=== PATIENT | male | born 1980 | race Caucasian/White ===

== ENCOUNTER → 2019-12-26 12:38 | Outpatient (CLI) | payer OTHER, SELFPAY ==
[2019-12-26 13:26] LABS: Absolute Lymphocyte Count 1.81 X10^3/uL (0.83-4.51); Absolute Neutrophil Count 4.2 X10^3/uL (2.0-7.7); Basophil# 0.04 X10^3/uL; Basophil% 0.6 % (0-1); Eosinophil# 0.29 X10^3/uL; Eosinophils% 4.2 % (0-5); Hematocrit 41.2 % (40-54); Hemoglobin 13.7 g/dL (13.0-16.5); Lymphocyte # 1.81 X10^3/ul (4.0); Lymphocyte % 26.2 % (19-41); Mean Corp Hgb Conc 33.3 g/dL (32-36); Mean Corpuscular Hgb 28.2 pg (27.0-32.0); Mean Corpuscular Volume 84.9 fL (80-94); Mean Platelet Vol. 9.5 fl (6.2-12.0); Monocyte# 0.55 X10^3/uL; NRBC Flagged by Analyzer 0 % (0-5); Neutrophil # 4.21 X10^3/uL (2.7-7.7); Neutrophil % 60.9 % (47-70); Platelet Count 249 K/mm3 (150-450); RBC Distribution Width CV 12.5 % (11.6-14.6); RBC Distribution Width SD 37.7 fl (35.1-43.9); Red Blood Count 4.85 M/mm3 (4.6-6.2); White Blood Count 6.9 K/mm3 (4.4-11.0)
[2019-12-26 13:27] LABS: Erythrocyte Sedimentation Rate 3 mm/hr (0-15)
[2019-12-26 13:46] LABS: CRP < 2.90 mg/L (0.0-3.0)
== END ==
PROVIDERS: PCP Family Medicine; Referring Provider Physician Assistant; Visit Provider Physician Assistant
DX: M25.562 Pain in left knee (principal)
CPT/HCPCS: 36415; 85025; 85652; 86140

== ENCOUNTER → 2020-01-14 17:06 | Outpatient (CLI) | payer OTHER, SELFPAY ==
--- NOTE | 2020-01-14 17:12 | CT_ITS ---
STUDY: CT LEFTLOWER EXTREMITY WITHOUT CONTRAST REASON FOR EXAM: 39-year-old, male old. VARUS DEFORMITY, ROBERT KNEE RADIATION DOSAGE (If Supplied By Facility): CTDIvol = ( ) mGy, DLP = ( ) mGycm TECHNIQUE: Thin section transaxial imaging of the ankle was obtained, with sagittal and coronal reconstructed images. Individualized dose optimization techniques were used for this CT. COMPARISON: None. Hip findings: Normal femoral head, neck, intertrochanteric region and visualized proximal femur. Normal acetabulum. Normal hip joint. Normal superior and inferior pubic rami. Normal pubic symphysis. Normal ischial tuberosity. Normal visualized iliac wing, sacroiliac joint, and sacral ala. Normal visualized soft tissue structures of the pelvis. Knee findings: Medial compartment prosthetic components are present. Subchondral lucency at the bone hardware interface could be related to loosening or granulomatous or cystic changes related to the hardware or secondary degeneration. A small intraosseous ganglion is present in the far anterior aspect of the medial tibial plateau/proximal metaphysis. A small intraosseous cyst is also seen in the posterior nonweightbearing aspect of the lateral femoral condyle. Mild cortical ossified formation is present at the periphery of the lateral compartment. Normal tibiofibular articulation. No demonstrated fracture. A small joint effusion is present. Mild narrowing and cortical spurring is seen in the patellofemoral compartment. Unremarkable soft tissue structures. Ankle findings: Normal visualized distal tibia and fibula. Normal tibiotalar articulation and talar dome. Normal talus, calcaneus, navicular and cuboid tarsal bones. Normal subtalar, talonavicular and calcaneocuboid articulations. Normal navicular-cuneiform, cuneiform tarsal bones and intercuneiform articulations. Normal tarsometatarsal articulations and visualized metatarsi. The soft tissue structures are grossly normal. CT/Extremity Lower without Contra IMPRESSION: 1. Medial compartment prosthetic components are present. Subchondral lucency at the bone hardware interface could be related to loosening or granulomatous or cystic changes related to the hardware or secondary degeneration. 2. Unremarkable left hip 3. Unremarkable left ankle Electronically Signed: Tye Lock MD at 23:41 EDT , Service support ,
== END ==
PROVIDERS: PCP Family Medicine; Referring Provider Specialist; Visit Provider Specialist
DX: M21.162 Varus deformity, not elsewhere classified, left knee (principal)
CPT/HCPCS: 73700

== ENCOUNTER 2020-01-30 08:24 | Day surgery (SDC) | payer SELFPAY ==
--- NOTE | 2020-01-15 13:15 | HP.PCM_ITS ---
History and Physical History and Physical Patient Name: Dary Johnson : 1980 From: IRAJ RECINOS NP DATE OF SURGERY: 01/30/2020 SCHEDULED PROCEDURE: Robotic-assisted revision left unicompartmental knee replacement to total knee arthroplasty HISTORY OF PRESENT ILLNESS: Preoperative history and physical exam was performed on January 14, 2020. This is a 39 male who has been having ongoing knee pain for approximately 1 month. The patient has a history of bilateral unicompartmental knee replacements in [place] [address] Carmine Montemayor. The patient describes his pain as sore. The pain is 0 on a scale of 10 at best and 5 on a scale of 10 with average. The pain is made worse with stairs and deep flexion of the left knee. The pain is ass ociated with decreased range of motion in the left knee over the last 2 months. The patient had a CBC with differential, ESR and CRP on December 26, 2019 revealing no acute infection. Previous treatments include rest, elevation, weight loss with minimal to no relief. He has participated in formal physical therapy and home exercises with no relief. Additional treatment options include nonsteroidal anti-inflammatories. The patient denies any pertinent medical history. He denies chest pain, fevers, chills, shortness of breath, difficulty breathing or recent infections. We will be obtaining surgical clearance from a provider at [facility] After failing conservative measures and discussing treatment options with Dr. Minesh Augustine the patient does wish to proceed with a robotic-assisted revision left unicompartmental knee replacement to total knee arthroplasty. REVIEW OF SYSTEMS: ROS: Const: Denies anorexia, change in appetite, fever, hard of hearing, vision problems and weight change. CV: Denies chest pain, heart murmur, irregular heartbeat and peripheral vascular disease. Resp: Denies asthma, cough, pneumonia, sleep apnea, SOB, tuberculosis and wheezing. GI: Denies constipation, diarrhea, difficulty swallowing, heartburn, nausea, bloody stools and vomiting. : Urinary: denies incontinence. Musculo: Denies leg swelling, limp, trouble walking and weakness. Skin: Denies Raynaud's, history of shingles and tattoo. Neuro: Denies ambulatory dysfunction, dizziness, numbness/tingling and tremor. Psych: Denies anxiety, depression, insomnia, mental illness and stress. Raul/Lymph: Denies anemia, bleeding/bruising tendency and past transfusion. Reviewed, no changes. PAST MEDICAL HISTORY: Advance Care Plan: No Advance Directives Effective Date: 01/12/2017 PMH: Medical Problems: None Accidents: Fracture - LT HAND, CURRENT, 08-28-10 RT WRIST LT LEG Surgical Hx: Stem Cell Injection Prodcure - (03/2016) Bilat Unicompartmental Knee Replacement - (11/25/2016) [email or web address] Anesthesia Complications: None Assistive Devices: None Reviewed, no changes. 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 Personal Habits: Cigarette Use: Light tobacco smoker (10 or fewer cigarettes/day).Smokeless Tobacco: Current Smokeless Tobacco User.E-Cigarette Use: Never used.Alcohol: Denies use.Drug Use: Denies Use.Enjoy Exercising: Daily. Reviewed and updated. VITALS: Ht: 72 Wt: 235lb Wt k.596 BMI: 31.9 BP: 104/72 Pulse: 92 Resp: 20 T: 97.4 T: 36.3C ALLERGIES: No Known Drug Allergy MEDICATIONS: Oxycodone HCL 5 mg 1-2 tab by mouth every 4 hours, Meloxicam 7.5 mg 1 by mouth twice a day, Promethazine HCL 12.5 mg 1-2 tablets by mouth every 6 hours, Famotidine 20 mg 1 by mouth every day, Scopolamine 1 MG/3Days 1 patch behind ear every 3 days; to begin the night before surgery PRE-OP EXAM: General appearance:NORMAL Other: Eyes: Conjunctivae and lids: NORMAL Pupils: ERR Ears, Nose, Mouth, and Throat: NORMAL Other: Inspection of lips, teeth and gums: NORMAL Other: Respiratory: Assessment of respiratory effort: NORMAL Other: Auscultation of lungs: clear to auscultation no wheezes, rhonchi or rales. Cardiovascular: Auscultation of heart: regular rate and rhythm, no murmurs, gallops or rubs. Gastrointestinal: Exam of abdomen: soft, nontender, nondistended bowel sounds present. Neurological: see below Psychiatric: Orientation to time, place and person: NORMAL Other: Mood and affect: NORMAL Other: PHYSICAL EXAMINATION: Left knee is cool to touch with no erythema or signs of infection. Mild effusion. Range of motion with flexion to 90. Firm endpoint with anterior and posterior drawer testing. 5 of varus alignment. Fully correctable varus alignment. IMAGING STUDIES: X-rays of left knee obtained on December 25, 2019 were reviewed and reveal lucencies under the tibial baseplate and by the femoral implant. IMPRESSION: 1. Pain due to internal orthopedic prosthetic device or implant 2. Presence of left artificial knee joint 3. Left knee effusion 4. Varus deformity, left knee PLAN: Dr. Minesh Augustine did discuss and review with the patient all treatment options including surgical versus nonsurgical. The patient does wish to proceed with the above-stated procedure. Potential risk, benefits and complications of the procedure were discussed in detail including but not limited to , infection, nerve and blood vessel damage, persistent pain, numbness, tingling, paresthesia, blood clot, pulmonary embolism and requirement for possible further surgery. The patient expressed full understanding and has no further questions for the doctor. The patient does agree to proceed with the above-stated p rocedure and has signed the surgery consent form. The patient was given prescriptions for the following medications at his preoperative visit: famotidine, meloxicam, oxycodone, promethazine and scopolamine patch. He will bring a walker with him to the hospital the day of his surgery. Discussed with the patient the risks associated with the COVID-19 virus including the risk of exposure while at the hospital. The patient was reassured local hospitals have low infection rates and taken all necessary precautions to limit patient exposure to COVID-19. Limiting the patient's time in the hospital may decrease their exposure to COVID-19. The patient was notified that we will need to comply with any screening or testing the hospital wishes to perform and that surgery may be delayed for any positive test results. This dictation was created using voice recognition software. Phonetic and/or grammatical errors may exist. ___ I have re-examined the patient. There are no clinical changes since date of exam. ___ See progress notes for changes. ___ Dictated on admission Date: Time: Signature:
[2020-01-16 11:19] LABS: Absolute Lymphocyte Count 1.38 X10^3/uL (0.83-4.51); Absolute Neutrophil Count 3.4 X10^3/uL (2.0-7.7); Basophil# 0.05 X10^3/uL; Basophil% 0.9 % (0-1); Eosinophil# 0.22 X10^3/uL; Eosinophils% 3.9 % (0-5); Hematocrit 39.3 % (40-54); Hemoglobin 13.3 g/dL (13.0-16.5); Lymphocyte # 1.38 X10^3/ul (4.0); Lymphocyte % 24.7 % (19-41); Mean Corp Hgb Conc 33.8 g/dL (32-36); Mean Corpuscular Hgb 28.4 pg (27.0-32.0); Mean Platelet Vol. 9.2 fl (6.2-12.0); Monocyte# 0.54 X10^3/uL; Monocyte% 9.7 % (0-10); NRBC Flagged by Analyzer 0 % (0-5); Neutrophil # 3.39 X10^3/uL (2.7-7.7); Neutrophil % 60.6 % (47-70); Platelet Count 264 K/mm3 (150-450); RBC Distribution Width CV 12.7 % (11.6-14.6); RBC Distribution Width SD 38.3 fl (35.1-43.9); Red Blood Count 4.68 M/mm3 (4.6-6.2); White Blood Count 5.6 K/mm3 (4.4-11.0)
[2020-01-16 11:38] LABS: Anion Gap 4 (5-15); BUN 23 mg/dL (7-18); BUN/Creat Ratio 17.4 RATIO (10-20); Calcium,Total 8.6 mg/dL (8.5-10.1); Chloride 110 mmol/L (98-107); Creatinine, Serum 1.32 mg/dL (0.70-1.30); EST Glomerular Filtration Rate 64 mL/min (>60); Est Glom Filt Rate - Afr Amer 77 mL/min (>60); Glucose 86 mg/dL (74-106); Magnesium 2.2 mg/dL (1.6-2.6); Potassium 3.8 mmol/L (3.5-5.1); Sodium Level 141 mmol/L (136-145)
[2020-01-24 10:21] LABS: Albumin, Serum 3.8 g/dL (3.2-5.0)
[2020-01-30] VITALS (11 sets, daily range): BP systolic 90–115; BP diastolic 43–80; PULSE 60–68; RESP 14–18; TEMP 36.6–36.8; O2SAT 94–100; BMI 31.3
[2020-01-30 09:10] LABS: Bedside Glucose 74 mg/dL (70-110)
[2020-01-30] MEDS: Gabapentin 600 MG Tablet PO (09:26)
[2020-01-30] MEDS: Acetaminophen 500 MG Tablet 1000 MG PO (09:26)
[2020-01-30] MEDS: Celecoxib 200 MG Capsule 400 MG PO (09:27)
[2020-01-30] MEDS: Lactated Ringers 1,000 ML 999 ML IV ×3 (09:31→14:31)
[2020-01-30] MEDS: Lactated Ringers 1,000 ML 125 ML IV (10:00)
[2020-01-30] MEDS: Cefazolin 2 GM in 0.9% Normal Saline 100 ML IV (10:15)
--- NOTE | 2020-01-30 12:28 | PCM.OPRPT ---
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 Based on patient's age and patella heart cartilage health we elected to maintain the patella child neurologist: Luke Borges Type of Anesthesia:: Spinal Anesthesiologist: Boom Martínez Special Medications: 2 g Ancef, 1 g TXA at incision, 1 g TXA closure, 10 mg Decadron, joint cocktail (5 mg Duramorph, 30 mL of 0.5% Ropivicaine, 1000 units of epinephrine, 30 mg of Toradol) Specimen's removed: Bony cuts Estimated Blood Loss (mL): 70 mL Fluids Replaced: 1700 mL crystalloid Description of Procedure: Implants used: 1. [place] size 6 triathlon posterior stabilized distal femoral component, with 5 mm posterior medial augment 2. Bridgett size 7 universal tibial baseplate with 15 x 50 mm stem 3. [place] X3 11 millimeters PS polyethylene Brief history operative indications: 39-year-old M with history of left knee osteoarthritis with previous medial compartment partial knee replacement. Patient had radiographic evidence of aseptic loosening with associated pain. Failed conservative measures as mentioned in the H&P. Discussion of total knee arthroplasty as well as risk and benefits were discussed the patient including but not limited to blood loss, DVTs, PEs, neurovascular damage, general risk of anesthesia including loss of life, and stiffness or instability were discussed with patient. Patient demonstrated understanding and was able to sign informed consent. Procedure: On the date of procedure patient's left lower extremity was marked in the preoperative area. The patient was then taken back to the operating room where the patient was placed on the table in the supine position. All bony prominences were identified a well-padded. Anesthesia assumed control of the C-spine and airway and remained controlled throughout the remainder of the procedure. A tourniquet was placed on the left upper thigh and the leg was prepped in a sterile fashion. The surgeon then scrubbed at this time .Upon reentering the room left lower extremity was draped in a standard orthopedic fashion. A timeout was then called and everyone agreed upon the side, the site, the procedure to be performed, patient's identity and antibiotics given. Esmarch bandage was used to exsanguinate the extremity and the tourniquet was placed up to 250 mmHg with the knee in flexion. A midline skin incision was made and sharp dissection was taken down through skin subcutaneous tissue and fat. The standard medial parapatellar incision was made and the patella was subluxed laterally. An Appropriate deep MCL release was done and the fat pad was resected. Standard synovectomy was performed. Part of the synovium was sent for culture. Our attention was then directed to the patella. The patella was everted and was affected. There appeared to be good cartilage. Based on patient's age, cartilage health and an attempt to preserve bone stock we elected not to resurface the patella. The knee was then flexed up in 2 femoral pins were placed inside the incision and 2 tibial pins were placed outside the incision in the medial tibia bicortically. Once this was completed the 2 checkpoints in the femur and tibia were placed. Knee was then flexed up and the bony landmarks were registered. Once we registered our attention was directed towards the previous implants. Osteotomes were used to remove the femoral implant. Osteotomes were then used to remove the tibial implant both were done with minimal bone loss. Tibia was grossly loose. Once this was completed knee was taken through range of motion and manually stressed allowing us to a plan for an appropriate tibial cut. The robotic arm was brought into the field sterilely and checkpoint and saw were registered. Based on the patient's deformity the tibial cut was made in 2 degrees varus. At this time the tensioner was then placed in the joint and ligament tension was checked at 90 degrees and full extension. Based on the patient's ligamentous tension appropriate adjustments were made to the operative plan and ligament releases were done. Once we were happy with our operative plan with balanced flexion and extension gaps our attention was directed to the femur. The robot was brought into the field sterilely and registered. Posterior condylar cuts, anterior chamfer cuts and anterior cuts were appropriately made for a size 6 femur with a 5 mm posterior medial augment based on bone loss. When these were completed the saws were switched out in the distal femoral and posterior chamfer cuts were made. Protecting the soft tissue throughout this time. A size 7 tibial base plate was selected. the knee was flexed to 90 degrees and the soft tissues and posterior osteophytes were removed from the joint. 40 cc of the periarticular injection was injected into the posterior medial corner of the joint. The appropriate trials were then placed on the femur and tibia. A trial polyethylene was trialed to ensure proper balancing and stability of the knee. The appropriate tibial internal rotation was then marked with a bovie. Our attention was then directed to the patella. The lug holes were drilled and the patella trial was placed. Patellar tracking was checked and deemed appropriate. Once we were happy box cut was made in the femur for the femur and trial components were removed. the tibia was subluxed and pinned into place and the keel was punched and drilled appropriately for the tibial stem. Final components were verified and opened, and cement was mixed in a vacuum. [employer] Simplex cement was used. The wound was copiously irrigated with normal saline. When the cement was ready the components were cemented into place starting with the tibia, femur. The trial poly component was placed and the knee was placed in full extension. All excess cement was removed in the process. Once the cement had cured the tracking, alignment and balance were verified and a size 11 mm PS polyethylene component was placed. Once the final components were placed an Irrisept lavage was performed and the wound was copiously irrigated with normal saline solution and the periarticular injection was given. The wound was closed in a layer webb fashion using #1 vicryl interrupted sutures for the arthrotomy, 2-0 interrupted Vicryl suture for the subcuticular layer and taya for final skin closure. A sterile compressive dressing was then placed. The patient was then awakened from anesthesia, transferred to the [facility] and transferred to the PACU for recovery. Post op plan DVT ppx: ASA 81mg BID, thigh high compression stockings Follow up: in office in 2 weeks for wound check PT: to start POD #0 at hospital, outpatient PT should be arranged. Patient will be on doxycycline 100 mg p.o. twice daily for 1 week as we follow cultures. My physician temporary office assistant was a vital part of this case. He was important in appropriate retraction during the case, and protection of soft tissues during bony cuts. His intimate knowledge of the case and my steps aided in safe and expedient completion of the procedure as well as appropriate position of the leg during the case. He was also vital in assisting with closure under my direct supervision. Due to the complexity of this case robotic arm was used to assist in the surgery to improve accuracy and clinical outcomes. - Complications No intraoperative complications - Admit VTE Documentation VTE Present on Admission: No VTE Mechan Device Prophylaxis: SCD's, Thigh High CLARA Hose VTE Pharm Prophylaxis ordered?: Yes
--- NOTE | 2020-01-30 13:33 | RAD_ITS ---
STUDY: X-RAY - LEFT KNEE REASON FOR EXAM: Male, 39 years old. Post op TECHNIQUE: AP and lateral view(s) of the knee. COMPARISON: None. FINDINGS: Normal visualized distal femur. Normal visualized proximal tibia and fibula. Normal proximal tibiofibular articulation. The patient is status post total knee replacement. There is good alignment. Postoperative soft tissue changes. RAD/Knee 1 or 2 Views IMPRESSION: Status post total knee replacement. There is good alignment. Postoperative soft tissue changes. Electronically Signed: Topher Weber, at 14:10 EDT , Service support ,
[2020-01-30] MEDS: Cefazolin 1 GM/50 ML BAG IV (16:00)
== END 2020-01-30 17:34 | disposition home or self-care (01) ==
LOC: SDC 08:26 → AC 08:26
PROVIDERS: Anesthesiology; PCP Family Medicine; Referring Provider Specialist; Visit Provider Specialist
PROC: 0SRD0JZ Replacement of Left Knee Joint with Synthetic Substitute, Open Approach (ICD-10-PCS; CPT 27447; principal; 2020-01-30 10:00)
DX: T84.84XA Pain due to internal orthopedic prosthetic devices, implants and grafts, initial encounter (principal); T84.033A Mechanical loosening of internal left knee prosthetic joint, initial encounter; Y83.1 Surgical operation with implant of artificial internal device as the cause of abnormal reaction of the patient, or of later complication, without mention of misadventure at the time of the procedure; Y92.9 Unspecified place or not applicable; Z11.59 Encounter for screening for other viral diseases; M25.462 Effusion, left knee; M21.162 Varus deformity, not elsewhere classified, left knee; F17.210 Nicotine dependence, cigarettes, uncomplicated; Z79.1 Long term (current) use of non-steroidal anti-inflammatories (NSAID); Z79.899 Other long term (current) drug therapy; Z96.653 Presence of artificial knee joint, bilateral
CPT/HCPCS: 27487; 64447; 76942; 36415; 73560; 80048; 82040; 82962; 83735; 85025; 87015; 87070; 87075; 87077; 87081; 87102; 87116; 87205; 87206; 87635; 93005; 94799; 97161; C1776; J7120; U0003

== ENCOUNTER → 2021-03-02 09:44 | Outpatient (CLI) | payer OTHER, SELFPAY ==
[2021-03-02 10:14] LABS: Erythrocyte Sedimentation Rate 3 mm/hr (0-20)
[2021-03-02 10:15] LABS: Absolute Lymphocyte Count 1.44 X10^3/uL (0.83-4.51); Absolute Neutrophil Count 3.9 X10^3/uL (2.0-7.7); Basophil# 0.05 X10^3/uL; Basophil% 0.8 % (0-1); Eosinophil# 0.28 X10^3/uL; Eosinophils% 4.6 % (0-5); Hematocrit 41.1 % (40-54); Hemoglobin 13.8 g/dL (13.0-16.5); Lymphocyte # 1.44 X10^3/ul (0.83-4.51); Lymphocyte % 23.6 % (19-41); Mean Corp Hgb Conc 33.6 g/dL (32-36); Mean Corpuscular Hgb 28.1 pg (27.0-32.0); Mean Corpuscular Volume 83.7 fL (80-94); Mean Platelet Vol. 9.2 fl (6.2-12.0); Monocyte# 0.45 X10^3/uL; Monocyte% 7.4 % (0-10); NRBC Flagged by Analyzer 0 % (0-5); Neutrophil # 3.87 X10^3/uL (2.7-7.7); Neutrophil % 63.4 % (47-70); Platelet Count 241 K/mm3 (150-450); RBC Distribution Width CV 12.9 % (11.6-14.6); RBC Distribution Width SD 39.1 fl (35.1-43.9); Red Blood Count 4.91 M/mm3 (4.6-6.2); White Blood Count 6.1 K/mm3 (4.4-11.0)
[2021-03-02 10:50] LABS: CRP < 2.90 mg/L (0.0-3.0)
== END ==
PROVIDERS: PCP Family Medicine; Visit Provider Specialist
DX: T84.84XD Pain due to internal orthopedic prosthetic devices, implants and grafts, subsequent encounter (principal); Z96.652 Presence of left artificial knee joint
CPT/HCPCS: 36415; 85025; 85652; 86140

== ENCOUNTER 2021-06-03 20:54 | Emergency (ER) | payer OTHER, SELFPAY ==
[2021-06-03 20:55] VITALS: PULSE 114; RESP 20; TEMP 37.4; O2SAT 98; BMI 32.7
[2021-06-03 21:03] VITALS: BP 129/72; PULSE 114; RESP 20; TEMP 37.4; O2SAT 98
--- NOTE | 2021-06-03 21:21 | EDS_ITS ---
HPI HPI - URI History of Present Illness Chief Complaint: Cough Informant: patient Onset/Context/Timing Onset: Days (8) Context: Sudden Onset Timing: Continuous Quality: Blood streaks Location: Sputum Worsened by: - (Nothing) Relieved by: - (Nothing) Associated Symptoms Associated Symptoms: Positive for Headache, Myalgias, Shortness of Breath, Chest Pain and Hemoptysis; Negative for Nasal Congestion, Sinus Pressure, Nausea, Vomiting, Diarrhea and Nonproductive cough Narrative Narrative: Patient presents with cough and subjective fever for the past 8 days. Patient states it began rather suddenly. Patient states he has been coughing for the past 8 days. Patient states that over the last couple days he noted some streaks of blood in his sputum. Patient states he has some pain in his chest but it is only with coughing. Patient admits to some shortness of breath. Patient also admits to some headaches and body aches. Patient was to a sore throat. Patient denies any rhinorrhea. ROS ROS ED Constitutional Constitutional ED: Reports fever(s) and subjective; Denies chills Eyes Eyes: Denies blurry vision or change in vision ENT ENT ED: Reports sore throat; Denies rhinorrhea Cardiovascular Cardiovascular: Reports chest pain; Denies palpitations Respiratory/Chest Respiratory/Chest: Reports cough; Denies dyspnea Gastrointestinal Gastrointestinal: Denies nausea or vomiting Genitourinary Genitourinary ED: Denies dysuria or hematuria Musculoskeletal Musculoskeletal: Reports myalgias; Denies back pain or neck pain Integumentary Denies abscess or rash Neurologic Neurologic: Reports headache(s); Denies weakness Allergic/Immunologic Allergic/Immunologic ED: Denies mouth swelling or urticaria PFSH PFSH Medical History no medical history no medical history Home Medications NK 06/03/21 [History Last Taken Unknown] Allergy/AdvReac Type Severity Reaction Status Date / Time No Known Allergies Allergy Verified 01/30/20 09:17 Surgical History History of bilateral knee replacement Social History Smoking Status: Current some day smoker tobacco type: cigarettes EXAM Physical Exam Const Vital Signs: 06/03/21 20:55 06/03/21 21:03 06/03/21 21:04 Temperature 99.4 F H 99.4 F H Temperature Source Temporal Temporal Pulse Rate 114 H 114 H Respiratory Rate 20 H 20 H Respiratory Effort Normal Respiratory Pattern Tachypnea Blood Pressure 129/72 H Blood Pressure Mean 91 Pulse Ox 98 98 Oxygen Delivery Method Room Air Room Air Room Air Positive well nourished and well developed General Appearance ED: well developed HEENT Reports moist mucous membranes Neck supple and no JVD Resp normal respiratory effort and clear to auscultation bilaterally Cardio regular rate, regular rhythm and no murmurs GI normal to inspection, nondistended, normoactive bowel sounds and non-tender Palpation: soft Extremity normal to inspection General Extremety ED: Negative for edema or tenderness General Extremity: Negative for edema Neuro oriented x3, CN's II-XII intact bilaterally and no sensory deficits noted Sensorium / Orientation: alert Motor Exam: strength 5/5 throughout Psych mental status grossly normal Skin no rashes or lesions noted MDM MDM MDM Narrative Medical decision making narrative: Patient was given a dose of Tylenol here. Patient was given albuterol inhaler. Patient was given some IV fluids. CBC with essentially within normal limits. There is a mild anemia with a hemoglobin of 11 and hematocrit 32.1. D-dimer was elevated at 1.7. Comprehensive metabolic profile was essentially within normal limits. Lactate was normal. Portable 1 view chest x-ray was obtained. On my interpretation, lung lucas are clear. There is normal cardiac silhouette. Bony thorax is normal. There is no acute process noted. Radiologist also interpreted the x-ray and agrees. Because of the elevated D-dimer, CTA of the chest was obtained. There is no evidence of pulmonary embolism or pneumonia. There is some hilar adenopathy noted. This was interpreted by the radiologist and reviewed by myself. Patient was advised of his findings. Patient was instructed to follow-up with his primary care physician for further evaluation of the hilar lymphadenopathy. Patient understands and is agreeable with the plan. All questions were answered. Lab Data Attestation: I reviewed the patient's lab results. Labs: Laboratory Results - last 24 hr 06/03/21 06/03/21 06/03/21 21:35 21:35 21:35 WBC 9.1 RBC 4.00 L Hgb 11.0 L Hct 32.1 L MCV 80.3 MCH 27.5 MCHC 34.3 RDW Std Deviation 34.5 L RDW Coeff of Bacilio 11.8 Plt Count 253 MPV 8.8 Immature Gran % (Auto) 0.400 Neut % (Auto) 84.3 H Lymph % (Auto) 6.3 L [place] % (Auto) 8.2 Eos % (Auto) 0.4 Baso % (Auto) 0.4 Absolute Neuts (auto) 7.6 Absolute Lymphs (auto) 0.57 L Nucleated RBC % 0 Differential Comment SCANNED D-Dimer Quant (PE/DVT) 1.70 H* Sodium 132 L Potassium 3.4 L Chloride 102 Carbon Dioxide 25.0 Anion Gap 5 BUN 12 Creatinine 1.10 Estim Creat Clear Calc 96.02 Est GFR (MDRD) Af Amer 94 Est GFR (MDRD) Non-Af 78 BUN/Creatinine Ratio 10.9 Glucose 117 H Lactic Acid Calcium 8.8 Total Bilirubin 0.80 AST 16 ALT 37 Alkaline Phosphatase 82 Total Protein 6.7 Albumin 2.6 L Globulin 4.1 Albumin/Globulin Ratio 0.6 L 06/03/21 21:35 WBC RBC Hgb Hct MCV MCH MCHC RDW Std Deviation RDW Coeff of Bacilio Plt Count MPV Immature Gran % (Auto) Neut % (Auto) Lymph % (Auto) [place] % (Auto) Eos % (Auto) Baso % (Auto) Absolute Neuts (auto) Absolute Lymphs (auto) Nucleated RBC % Differential Comment D-Dimer Quant (PE/DVT) Sodium Potassium Chloride Carbon Dioxide Anion Gap BUN Creatinine Estim Creat Clear Calc Est GFR (MDRD) Af Amer Est GFR (MDRD) Non-Af BUN/Creatinine Ratio Glucose Lactic Acid 1.0 Calcium Total Bilirubin AST ALT Alkaline Phosphatase Total Protein Albumin Globulin Albumin/Globulin Ratio Radiography Chest X-Ray - ED: 1 View, Read by ED Physician, Read by Radiologist and Normal Diagnostic Testing: Clinical Impression(s) from Imaging Studies Chest X-Ray 06/03/21 21:36 IMPRESSION: No radiographic evidence of acute cardiopulmonary disease. Electronically Signed: Popyee Villasenor MD at 21:58 EST Tel , Service support , Chest CTA 06/03/21 22:10 IMPRESSION: 1. No PE, pneumonia or other acute disease. 2. Mediastinum and hilar adenopathy. Differential diagnosis includes but is not limited to lymphoma, sarcoidosis, and metastatic disease Electronically Signed: Popeye Villasenor MD at 22:51 EST Tel , Service support , Discharge Plan Triage Chief Complaint: Cough ED Provider: Malachi Vines Dx/Rx/DC Orders Clinical Impression: Upper respiratory infection, viral Instructions: ED URI, Viral, No Abx (Adult) Prescriptions: No Action NK RF: 0 Primary Care Provider: Nellie Blount Referrals: Nellie Blount MD [Primary Care Provider] - 5-7 Days Disposition Disposition: Home, Self Care
--- NOTE | 2021-06-03 21:36 | RAD_ITS ---
EXAM: XR CHEST, 1 VIEW CLINICAL INDICATION: cough TECHNIQUE: Frontal view of the chest. This report was created using [employer] report generation technology. COMPARISON: None. FINDINGS: LUNGS AND PLEURAL SPACES: Unremarkable. No consolidation or edema. No pneumothorax. No effusion. HEART: Unremarkable. Cardiac silhouette not enlarged. MEDIASTINUM: Central airways and mediastinal contour are unremarkable. BONES/JOINTS: Unremarkable. SOFT TISSUES: Unremarkable. RAD/Chest 1 View (Portable) IMPRESSION: No radiographic evidence of acute cardiopulmonary disease. Electronically Signed: Popeye Villasenor MD at 21:58 EST Tel , Service support ,
[2021-06-03] MEDS: Acetaminophen 500 MG Tablet 1000 MG PO (21:40)
[2021-06-03 21:48] LABS: Absolute Lymphocyte Count 0.57 X10^3/uL (0.83-4.51); Absolute Neutrophil Count 7.6 X10^3/uL (2.0-7.7); Basophil# 0.04 X10^3/uL; Basophil% 0.4 % (0-1); Eosinophil# 0.04 X10^3/uL; Eosinophils% 0.4 % (0-5); Hematocrit 32.1 % (40-54); Lymphocyte # 0.57 X10^3/ul (0.83-4.51); Lymphocyte % 6.3 % (19-41); Mean Corp Hgb Conc 34.3 g/dL (32-36); Mean Corpuscular Hgb 27.5 pg (27.0-32.0); Mean Corpuscular Volume 80.3 fL (80-94); Mean Platelet Vol. 8.8 fl (6.2-12.0); Monocyte# 0.74 X10^3/uL; Monocyte% 8.2 % (0-10); NRBC Flagged by Analyzer 0 % (0-5); Neutrophil # 7.63 X10^3/uL (2.7-7.7); Neutrophil % 84.3 % (47-70); POSITIVE DIFFERENTIAL YES; Platelet Count 253 K/mm3 (150-450); RBC Distribution Width CV 11.8 % (11.6-14.6); RBC Distribution Width SD 34.5 fl (35.1-43.9); White Blood Count 9.1 K/mm3 (4.4-11.0)
[2021-06-03 21:51] LABS: Differential Indicated SCAN CRITERIA MET
--- NOTE | 2021-06-03 22:10 | CT_ITS ---
EXAM: CT ANGIOGRAPHY CHEST WITHOUT AND WITH INTRAVENOUS CONTRAST CLINICAL INDICATION: Elevated D-dimer TECHNIQUE: Helically acquired angiography images were obtained of the chest without and with intravenous contrast. CTDI vol (mGy): 61 DLP vol (mGy-cm): [address] exam was performed using one or more of the following dose reduction techniques: automated exposure control, adjustment of the mA and/or kV according to patient size, and/or use of iterative reconstruction technique. This report was created using [employer] report generation technology. MIP reconstructed images were created and reviewed. CONTRAST: IV 100mL Isovue-370 COMPARISON: None. FINDINGS: PULMONARY ARTERIES: Unremarkable. Normal in caliber. No evidence of pulmonary embolism. AORTA: Unremarkable. Normal in caliber. No evidence of dissection. GREAT VESSELS OF AORTIC ARCH: Unremarkable. Normal in caliber. No evidence of dissection. LUNGS AND PLEURAL SPACES: No consolidation. No pleural effusion or pneumothorax. HEART: Cardiomegaly without pericardial effusion. No signs of right heart strain, ratio of right ventricle to left ventricle measures less than 1. MEDIASTINUM: Right and left hilar as well as subcarinal/mediastinal adenopathy. Etiology and significance our not entirely clear. Esophagus is unremarkable. No hiatal hernia. THYROID: Unremarkable. No thyroid lesions. BONES/JOINTS: No suspicious lytic or sclerotic lesions of bone. SPLEEN: Splenomegaly. CT/CTA Chest W/WO Contrast IMPRESSION: 1. No PE, pneumonia or other acute disease. 2. Mediastinum and hilar adenopathy. Differential diagnosis includes but is not limited to lymphoma, sarcoidosis, and metastatic disease Electronically Signed: Popeye Villasenor MD at 22:51 EST Tel , Service support ,
[2021-06-03 22:16] LABS: Differential Comment SCANNED
[2021-06-03 22:20] LABS: ALB/GLOB Ratio 0.6 RATIO (0.9-2.4); AST(SGOT) 16 U/L (15-37); Alanine Aminotransfer ALT/SGPT 37 U/L (16-61); Albumin, Serum 2.6 g/dL (3.2-5.0); Alkaline Phosphatase 82 U/L (45-117); Anion Gap 5 (5-15); BUN 12 mg/dL (7-18); BUN/Creat Ratio 10.9 RATIO (10-20); Calcium,Total 8.8 mg/dL (8.5-10.1); Chloride 102 mmol/L (98-107); EST Glomerular Filtration Rate 78 mL/min (>60); Est Glom Filt Rate - Afr Amer 94 mL/min (>60); Estimated Creatinine Clearance 96.02 ml/min; Globulin 4.1 g/dL (2.2-4.2); Glucose 117 mg/dL (74-106); Potassium 3.4 mmol/L (3.5-5.1); Protein, Total 6.7 g/dL (6.4-8.2); Sodium Level 132 mmol/L (136-145)
[2021-06-03 23:21] VITALS: BP 100/75; PULSE 102; RESP 18; O2SAT 95
== END 2021-06-03 23:22 | disposition home or self-care (01) ==
PROVIDERS: Emergency Provider Emergency Medicine; PCP Family Medicine
DX: J06.9 Acute upper respiratory infection, unspecified (principal); R59.0 Localized enlarged lymph nodes; F17.210 Nicotine dependence, cigarettes, uncomplicated
CPT/HCPCS: 71045; 71275; 80053; 83605; 85025; 85379; 87040; 87426; 96360; 99285; J7040; Q9967

== ENCOUNTER 2021-06-09 03:11 | Inpatient (IN) | payer OTHER, SELFPAY ==
[2021-06-09] VITALS (13 sets, daily range): BP systolic 100–140; BP diastolic 61–98; PULSE 80–108; RESP 16–24; TEMP 37.3–39.4; O2SAT 91–98; BMI 32.3; BMI 31.1
--- NOTE | 2021-06-09 03:24 | EX.ED.DYSGE1 ---
HPI History of Present Illness Chief Complaint: Lower Extremity Injury Informant: patient and spouse/S.O. Narrative Narrative: Patient presents with right knee pain. This patient woke up Tuesday morning and his right knee had locked up on him. This happens on occasion. He was able to get more motion. It started to get sore on Tuesday. Then in the evening and seemed to calm down. It was worse with activity. He saw his physician Tuesday. He was placed on prednisone. He has taken what sounds like 40 mg of that so far. He woke up this morning and his knee was more painful again. He does have a long history of knee problems. This knee will oftentimes lock swell and be painful. However this is a bit more than the normal. In 2016 he had partial knee replacements on both knees. 2019 he had a left total knee. He was last seen by his orthopedic surgeon in February and was told he does need a right total knee replacement. But he does not need it acutely. He has had no acute trauma or injury to the knee. Putting weight on the knee hurts more. Resting it makes it better. Patient was also seen here about 6 days ago for a respiratory complaint. He was coughing including coughing some blood. He had an extensive evaluation including blood work and CAT scan. Covid was negative. He states those symptoms are getting much better. He has a slight cough. But he is not having the fevers and chills anymore. When he had the fevers and chills the knee was not bothering him anymore than is his normal. When he was first seen his knee was at its baseline. The symptoms only started Tuesday morning. Prior to that that he did not have his knee pain. [facility] Home Medications prednisone 40 mg PO BID 06/09/21 [History Last Taken Unknown] Allergy/AdvReac Type Severity Reaction Status Date / Time No Known Allergies Allergy Verified 01/30/20 09:17 Surgical History History of bilateral knee replacement Social History Smoking Status: Current some day smoker tobacco type: cigarettes ROS ROS ED Constitutional Constitutional ED: Denies chills or fever(s) ENT ENT ED: Denies rhinorrhea or sore throat Cardiovascular Cardiovascular: Denies chest pain Respiratory/Chest Respiratory/Chest: Reports cough; Denies dyspnea or sputum Gastrointestinal Gastrointestinal: Denies nausea or vomiting Genitourinary Genitourinary ED: Denies dysuria or hematuria Musculoskeletal Musculoskeletal: Reports other Details: See history of present illness. Integumentary Denies abscess or Abrasions Neurologic Neurologic: Denies headache(s) or weakness Endocrine Endocrinology: Denies polydipsia or polyuria Allergic/Immunologic Allergic/Immunologic ED: Denies mouth swelling or urticaria EXAM Physical Exam Const Vital Signs: 06/09/21 03:12 Temperature 99.1 F Temperature Source Oral Pulse Rate 95 Respiratory Rate 18 Blood Pressure 110/73 Blood Pressure Mean 85 Pulse Ox 97 Oxygen Delivery Method Room Air Positive well nourished and well developed General Appearance ED: well developed and NAD; Negative for diaphoretic or pallor HEENT Reports moist mucous membranes Eyes General Eye ED: Negative for pale conjunctiva or scleral icterus Neck no JVD Chest Wall inspection of chest normal Resp normal respiratory effort and clear to auscultation bilaterally Effort and Inspection: Negative for pain with movement Auscultation: Negative for rales, rhonchi or wheezes Cardio regular rate and regular rhythm GI normal to inspection, nondistended, normoactive bowel sounds and non-tender Palpation: soft Back/Spine no CVA tenderness Extremity Extremity Narrative: Both knees have some mild valgus deformity. He is right knee does have a bit of an effusion. His feels this is likely a little bit more than normal. There is no focal tenderness. I can actually move his knee through good range of motion without notable pain. It is more painful with compression. The pain seems to be more toward the tibial side rather than the femoral side. It is not red. It is not hot. There is some slight warmth to the area. Neuro Sensorium / Orientation: alert Psych mental status grossly normal Skin no rashes or lesions noted, no wounds and skin turgor normal General Skin Exam: Negative for jaundice or pallor MDM MDM MDM Narrative Medical decision making narrative: Procedure: Arthrocentesis right knee: Due to the patient's high white count, high sed rate, high CRP, warm knee and increased pain we did proceed with aspiration for synovial fluid. I explained risks and benefits and options. This patient has had a partial knee replacement but I think his findings are quite concerning. The knee was sterilely prepped with ChloraPrep. It was sterilely draped on all sides. It was anesthetized with 3 cc of 1% lidocaine locally. We made sure no fluid was injected into the joint. An 18-gauge needle was then used with 20 cc syringe to aspirate synovial fluid. We got a small flash of blood initially and then yellow-tinged fluid that was opaque in a 20 cc syringe that was filled. This is sent off for studies including stat Gram stain which is included with culture and sensitivity, cell counts, crystals. Patient was given further pain meds. We are pending these results at this time. MDM: Patient's labs do point to possibility of infection. His arthrocentesis was done. This is also consistent with infection. It is yellow turbid with 115,000 white cells with 103,000 of those being PMNs. I am still awaiting crystals but even if those are positive I am strongly concerned that this is an infected knee. His Gram stain is currently read negative. However, when it was first released it did say gram-positive cocci. I called the lab and talked with the tach. He states that the first pain did show what he thought were gram-positive cocci but the staining was a little darker than normal. He read did the stain and does not see gram-positive cocci now. He will have the morning crew look at those stains also. But this makes me even more suspicious of infection. I did discuss case with on-call orthopedics. I then called Dr. Augustine who is this patient's orthopedic surgeon. He recommended holding antibiotics unless the patient is looking septic. I then talked to the hospitalist. Patient will be admitted. Plan is for washout after his clearance. I explained this to the patient. Lab Data Attestation: I reviewed the patient's lab results. Labs: Laboratory Results - last 24 hr 06/09/21 06/09/21 06/09/21 03:30 03:30 04:23 WBC 17.3 H RBC 4.50 L Hgb 12.0 L Hct 35.7 L MCV 79.3 L MCH 26.7 L MCHC 33.6 RDW Std Deviation 34.6 L RDW Coeff of Bacilio 12.0 Plt Count 372 MPV 8.6 Immature Gran % (Auto) 0.600 Neut % (Auto) 89.9 H Lymph % (Auto) 3.[address] [place] % (Auto) 5.5 Eos % (Auto) 0.0 Baso % (Auto) 0.1 Absolute Neuts (auto) 15.5 H Absolute Lymphs (auto) 0.67 L Nucleated RBC % 0 ESR 33 H Sodium 133 L Potassium 3.8 Chloride 100 Carbon Dioxide 24.0 Anion Gap 9 BUN 13 Creatinine 0.92 Estim Creat Clear Calc 114.81 Est GFR (MDRD) Af Amer 117 Est GFR (MDRD) Non-Af 96 BUN/Creatinine Ratio 14.2 Glucose 138 H Calcium 8.8 C-React Prot Ext Range 183.00 H Fluid Crystals SEE PATH REV Fluid Crystal Source SYNOVIAL Synovial Source RIGHT KNEE Synovial Color Yellow Synovial Appearance Turbid Synovial WBC 115.6000 H Synovial RBC 0.[address] Cell Ct 116.2200 H Synov Polynuclear WBCs 103.700 Synov Mononuclear WBCs 11.[address] Comment May follow Radiography Diagnostic Testing: Clinical Impression(s) from Imaging Studies Knee X-Ray 06/09/21 03:55 IMPRESSION: Moderate joint effusion of the knee. Electronically Signed: Jesusita العلي MD at 4:41 EST Tel , Service support , Procedures Other Procedures Procedure(s): See MDM for procedure note. Discharge Plan Dx/Rx/DC Orders Clinical Impression: Septic arthritis of knee, Leukocytosis, CRP elevated Disposition Disposition: Acute Care [facility]
[2021-06-09] MEDS: Morphine 4 MG/ML Syringe IV ×5 (03:34→18:04)
[2021-06-09 03:46] LABS: Absolute Lymphocyte Count 0.67 X10^3/uL (0.83-4.51); Absolute Neutrophil Count 15.5 X10^3/uL (2.0-7.7); Basophil# 0.01 X10^3/uL; Basophil% 0.1 % (0-1); Hematocrit 35.7 % (40-54); Lymphocyte # 0.67 X10^3/ul (0.83-4.51); Lymphocyte % 3.9 % (19-41); Mean Corp Hgb Conc 33.6 g/dL (32-36); Mean Corpuscular Hgb 26.7 pg (27.0-32.0); Mean Corpuscular Volume 79.3 fL (80-94); Mean Platelet Vol. 8.6 fl (6.2-12.0); Monocyte# 0.95 X10^3/uL; Monocyte% 5.5 % (0-10); NRBC Flagged by Analyzer 0 % (0-5); Neutrophil # 15.52 X10^3/uL (2.7-7.7); Neutrophil % 89.9 % (47-70); Platelet Count 372 K/mm3 (150-450); RBC Distribution Width SD 34.6 fl (35.1-43.9); White Blood Count 17.3 K/mm3 (4.4-11.0)
[2021-06-09 03:52] LABS: Erythrocyte Sedimentation Rate 33 mm/hr (0-20)
--- NOTE | 2021-06-09 03:55 | RAD_ITS ---
STUDY: X-RAY - RIGHT KNEE REASON FOR EXAM: Male, 41 years old. pain TECHNIQUE: 4 view(s) of the knee. COMPARISON: None. FINDINGS: Normal visualized distal femur. Normal visualized proximal tibia and fibula. Normal proximal tibiofibular articulation. Partial arthroplasty of the medial femorotibial compartment. Normal lateral femorotibial compartment. Normal patellofemoral articulation. There is a moderate volume joint effusion. The soft tissue structures are unremarkable. RAD/Knee 4 or More Views IMPRESSION: Moderate joint effusion of the knee. Electronically Signed: Jesusita العلي MD at 4:41 EST Tel , Service support ,
[2021-06-09 04:08] LABS: Anion Gap 9 (5-15); BUN 13 mg/dL (7-18); BUN/Creat Ratio 14.2 RATIO (10-20); Calcium,Total 8.8 mg/dL (8.5-10.1); Chloride 100 mmol/L (98-107); Creatinine, Serum 0.92 mg/dL (0.70-1.30); EST Glomerular Filtration Rate 96 mL/min (>60); Est Glom Filt Rate - Afr Amer 117 mL/min (>60); Estimated Creatinine Clearance 114.81 ml/min; Glucose 138 mg/dL (74-106); Potassium 3.8 mmol/L (3.5-5.1); Sodium Level 133 mmol/L (136-145)
[2021-06-09] MEDS: Lidocaine 1% (20 ml mdv) 20 ML Vial 10 ML INFILT (04:18)
[2021-06-09 04:27] LABS: Pathologist Comment May follow
[2021-06-09] MEDS: Ketorolac 15 MG/ML Vial IV (05:21)
[2021-06-09 05:48] LABS: AUTO B FLUID DILUENT BKGD CT WBC <0.1 RBC <0.01 (W<.1,R<.01); Source / Synovial Fluid RIGHT KNEE; Source- Body Fluid SYNOVIAL
[2021-06-09 05:49] LABS: Appearance /Synovial Fluid Turbid (CLEAR); Color / Synovial Fluid Yellow (Pale Yellow)
--- NOTE | 2021-06-09 06:24 | CT_ITS ---
STUDY: CT BRAIN WITHOUT CONTRAST REASON FOR EXAM: Male, 41 years old. double vision RADIATION DOSAGE (If Supplied By Facility): CTDIvol = ( 44.99 ) mGy, DLP = ( 829.85 ) mGycm TECHNIQUE: Transaxial CT imaging of the brain was performed without administration of intravenous contrast material. Individualized dose optimization techniques were used for this CT. COMPARISON: No relevant priors. FINDINGS: Normal soft tissue structures. Normal calvarium. Normal size ventricles and extra-axial spaces for the patient''s age. Normal white matter tracts of the cerebral hemispheres. Normal basal ganglia and thalami. Normal brainstem. Normal cerebellum. There is no intracranial hemorrhage. There are no findings of an acute ischemic infarction. Normal visualized paranasal sinuses. CT/Brain/Head without Contrast IMPRESSION: Normal unenhanced CT scan of the brain. Electronically Signed: Jesusita العلي MD at 7:12 EST Tel , Service support ,
[2021-06-09 06:26] LABS: Body Fluid QC Type(s) BF1Q, BF2Q; Lymph 3 %; Monocyte /Synovial Fluid 1 %; Neutrophil 96 % (0-25)
--- NOTE | 2021-06-09 06:31 | PCM.HP.STD ---
HPI - General HPI Narrative DELFINA GARCIA, is a 41 M who presents to the emergency room with chief complaint of right knee pain. Onset of this pain began last Tuesday and has progressively become worse. The patient has a significant history of surgery with a partial knee replacement to that knee and has been told that he needs a total knee replacement in the near future. 1 week ago the patient had also been seen in the emergency room for chief complaint of cough and COVID-[address] scan was done at that time and was normal. The patient denies cough at this time and has no chest pain, shortness of breath, fever or chills. The patient did comment on having some double vision at distance to the ER physician and a CT scan of the head was ordered and is pending at the time of my evaluation. The patient does not have any chronic medical conditions including smoking or drinking or any other risk factors that would pose a presurgical risk. The right knee was aspirated and white blood cell content was over 150,000 and his CBC white count was 17,000. The initial Gram stain was reportedly gram-positive cocci but then the report changed and the matlab developer stated to the ER physician that he was going to have the morning crew re-stain for final read. Per report of ER doctor the orthopedic surgeon does not wish to start antibiotics at this time and he will be made n.p.o. pending surgical evaluation and management. PFS Home Medications prednisone 40 mg PO BID 06/09/21 [History Last Taken Unknown] Allergy/AdvReac Type Severity Reaction Status Date / Time No Known Allergies Allergy Verified 01/30/20 09:17 Surgical History History of bilateral knee replacement Social History Smoking Status: Current some day smoker tobacco type: cigarettes ROS Constitutional Constitutional: Denies anorexia or chills Eyes Eyes: Reports double vision ENT HEENT: Denies abnormal hearing Cardiovascular Cardiovascular: Denies chest pain Respiratory/Chest Respiratory/Chest: Denies cough or shortness of breath at rest Gastrointestinal Gastrointestinal: Denies abdominal pain Genitourinary Genitourinary: Reports dysuria Musculoskeletal Musculoskeletal: Reports joint pain, joint stiffness, joint swelling and limited range of motion Integumentary Integumentary: Denies dry skin Neurologic Neurologic: Reports abnormal gait Psychiatric Psychiatric: Denies anxiety Vital Signs Vital Signs Vital Signs: 06/09/21 03:12 06/09/21 06:26 Temperature 99.1 F 100.4 F H Temperature Source Oral Oral Pulse Rate 95 82 Respiratory Rate 18 18 Blood Pressure 110/73 130/98 H Blood Pressure Mean 85 108 Pulse Ox 97 98 Oxygen Delivery Method Room Air Room Air Weight Weight: 238 lb 1.588 oz Body Mass Index (BMI) 32.3 Physical Exam Const oriented x3 and no apparent distress General Appearance: cooperative HEENT head/scalp atraumatic Eyes PERRL Neck supple Lymph Lymphatic: no lymphadenopathy noted Resp normal respiratory effort, normal air movement and clear to auscultation bilaterally Cardio regular rate, regular rhythm, S1 normal heart sound, S2 normal heart sound and no murmurs GI normal to inspection, nondistended, normoactive bowel sounds Extremity Extremity Narrative: right knee tender,swollen and decrease rom Skin Rashes: no rashes Neuro CN's II-XII intact bilaterally Psych affect normal Results Lab / Micro Data Result Diagrams: 06/09/21 03:30 06/09/21 03:30 Labs: Laboratory Results - last 24 hr 06/09/21 03:30: WBC 17.3 H, RBC 4.50 L, Hgb 12.0 L, Hct 35.7 L, MCV 79.3 L, MCH 26.7 L, MCHC 33.6, RDW Std Deviation 34.6 L, RDW Coeff of Bacilio 12.0, Plt Count 372, MPV 8.6, Immature Gran % (Auto) 0.600, Neut % (Auto) 89.9 H, Lymph % (Auto) 3.9 L, [place] % (Auto) 5.5, Eos % (Auto) 0.0, Baso % (Auto) 0.1, Absolute Neuts (auto) 15.5 H, Absolute Lymphs (auto) 0.67 L, Nucleated RBC % 0, ESR 33 H 06/09/21 03:30: Sodium 133 L, Potassium 3.8, Chloride 100, Carbon Dioxide 24.0, Anion Gap 9, BUN 13, Creatinine 0.92, Estim Creat Clear Calc 114.81, Est GFR (MDRD) Af Amer 117, Est GFR (MDRD) Non-Af 96, BUN/Creatinine Ratio 14.2, Glucose 138 H, Calcium 8.8, C-React Prot Ext Range 183.00 H 06/09/21 04:23: Fluid Crystals SEE PATH REV, Fluid Crystal Source SYNOVIAL, Fl Crystal Path Review Will follow, Synovial Source RIGHT KNEE, Synovial Color Yellow, Synovial Appearance Turbid, Synovial WBC 115.6000 H, Synovial RBC 0.020 H, Synovial Tot Cell Ct 116.2200 H, Synov Polynuclear WBCs 103.700, Synov Mononuclear WBCs 11.900, Synovial Neutrophils 96 H, Synovial Lymphocytes 3, Synovial Monocytes 1, Synovial Path Comment May follow Micro: Microbiology 06/09/21 04:23 Fluid - Synovial (joint) Gram Stain - Preliminary Radiology Impression Knee X-Ray 06/09/21 03:55 IMPRESSION: Moderate joint effusion of the knee. Electronically Signed: Jesusita العلي MD at 4:41 EST Tel , Service support , Assessment & Plan Assessment/Plan (1) Septic arthritis of knee: PLAN: 1 septic arthritis of right knee?admit patient to medical surgical floor, consult orthopedic surgery Dr. Augustine, make patient n.p.o. start normal saline at 75 cc/h, patient pain is controlled at this time as long as he is not moving, antibiotics will be assessed and determined by orthopedic surgeon I was told to not start them at this time by ER physician per his conversation with the orthopedic surgeon. 2. DVT prophylaxis?low molecular weight heparin patient is a low surgical risk to proceed, CT scan of head is pending and I anticipate that to be normal. Charges/Coding Visit Charges Inpatient E&M: 39979 Init Hosp L3
--- NOTE | 2021-06-09 06:37 | NURSING ---
[address] KNEE
[2021-06-09] MEDS: 0.9% Normal Saline 1,000 ML 75 ML IV ×2 (07:51→18:16)
--- NOTE | 2021-06-09 11:28 | CASEMGMT ---
ARMAAN QUESADA Assessment: Face to Face with pt for initial transition planning/care coordination assessment. RN SANGITA introduced self and role at [facility], pt voices understanding and consents to assessment. Patient sitting up in bed, complains of right knee pain. Patient's nurse notified of pain complaint. Pt is A/O x4 and answers all questions appropriately at this time. Care providers, pharmacy, and demographics verified/updated. Admitting Dx: Septic Arthritis Right Knee PCP: Nellie Blount Specialists: Ric das Preferred Pharmacy: [place], [place] Insurance: [employer] ([employer]) Prescription Benefit: no LW/HPOA: Pt denies having a LW/DPOA and denies need for info regarding AD. LNOK: Nohemy Johnson, Living Arrangements: Pt lives with and 8 children in 3 story home with 5 stairs to enter with railing. Patient reports independent with ADLs prior to hospitalization. Transportation: Pt has hired local company hazmat driver for transportation needs. DME/HHC/SNF: Patient has cane in home. Denies previous HHC or SNF stay. Pt states no concerns with going home at time of dc. Pt states no further concerns/needs. CM to follow. Advised pt to ask CM if any further question/concerns/needs arise, voices understanding. Pt Goal: home Plan: home
--- NOTE | 2021-06-09 12:49 | NURSING ---
[facility] NOTIFIED PT FTFI=412.0, NO TYLENOL ON AUG, NO ANTIBIOTICS ORDERED. THEY WILL LET DR ALEXANDER KNOW.
--- NOTE | 2021-06-09 13:33 | CON.PCM_ITS ---
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 Natural history of the disease process and treatment options were discussed the patient. Patient is already undergoing treatment for progressive osteoarthritis of the knee. We discussed available treatment options include polyethylene exchange debridement and retainment of implants or antibiotic spacer. Patient understands this will affect the long-term trans position of his knee to a total knee replacement which she was previously considering. At this time I recommended we stabilize the patient and retain the implants as they have been functioning well for him. The time frame is less than 1 week. He has begun to show signs of sepsis throughout the day. We need to proceed with surgery this this afternoon. He is in the preoperative holding area we plan to proceed with surgery. We will hold antibiotics until cultures are obtained intraoperatively. Risks and benefits of the procedure were discussed the patient as well as his who is at bedside including but limited to blood loss, DVTs, PEs, nervous damage infection, the risk of anesthesia include loss of life. Patient demonstrates an understanding he could have continued infection as well as superinfection. He also understands that this will affect long-term outcome of any future surgeries. Timeline was discussed for both a antibiotic spacer and a retainment of implants. He does understand the repeat surgery for continued infection is a possibility. Patient is n.p.o. Plan is to proceed with surgery this afternoon. [facility] Office: HPI Consult Data Date of Consult: 06/09/21 Attending Care Provider: Consult requested for right knee pain HPI Narrative HPI Narrative: DELFINA GARCIA, is a 41 M who presents today with right knee pain and swelling. Patient has a previous medial compartment partial knee replacement done by my retired partner in 2017. Patient had previously been under treatment in the office and was supposed to have a conversion to total knee replacement based on progression of osteoarthritis. Patient had a upper respiratory infection last week he did not receive any antibiotics I believe he was felt to be viral. He was recovering from that then on Tuesday morning he had stiffness of the knee with associated swelling. He has had progressive pain throughout the week and presented to the emergency department this morning. Aspiration of the knee was performed after patient had increased serum inflammatory lab work. Aspiration was consistent with infection. Throughout the day patient has become more diaphoretic and developed fevers more consistent with infection. We have been holding antibiotics and plan to hold until surgery we should proceed shortly. Patient notes his pain is an 8 out of 10 worse with motion better with immobilization. Denies any decrease in dental work or other infections. PFSH Home Medications prednisone 40 mg PO BID 06/09/21 [History Last Taken Unknown] Allergy/AdvReac Type Severity Reaction Status Date / Time No Known Allergies Allergy Verified 01/30/20 09:17 Surgical History History of bilateral knee replacement Social History Smoking Status: Current some day smoker tobacco type: cigarettes ROS Constitutional Constitutional: Reports systems reviewed and no addt'l complaints, except as documented Physical Exam Const alert, oriented x3 and no apparent distress General Appearance: cooperative and diaphoretic Orientation / Consciousness: awake HEENT normocephalic HEENT Narrative: Poor dentition Eyes PERRL Neck no JVD Resp normal respiratory effort Cardio Cardio Narrative: Regular pulse rate GI non-distended Extremity Extremity Narrative: Right lower extremity: No erythema. Significant increase in warmth. Massive effusion. Pain with passive range of motion. Stable to va viki and valgus stress. Incision is clean dry and intact. Neurovascular intact distally. Psych mental status grossly normal Lab / Micro Data Result Diagrams: 06/09/21 03:30 06/09/21 03:30 Labs: Laboratory Results - last 24 hr 06/09/21 03:30: WBC 17.3 H, RBC 4.50 L, Hgb 12.0 L, Hct 35.7 L, MCV 79.3 L, MCH 26.7 L, MCHC 33.6, RDW Std Deviation 34.6 L, RDW Coeff of Bacilio 12.0, Plt Count 372, MPV 8.6, Immature Gran % (Auto) 0.600, Neut % (Auto) 89.9 H, Lymph % (Auto) 3.9 L, [place] % (Auto) 5.5, Eos % (Auto) 0.0, Baso % (Auto) 0.1, Absolute Neuts (auto) 15.5 H, Absolute Lymphs (auto) 0.67 L, Nucleated RBC % 0, ESR 33 H 06/09/21 03:30: Sodium 133 L, Potassium 3.8, Chloride 100, Carbon Dioxide 24.0, Anion Gap 9, BUN 13, Creatinine 0.92, Estim Creat Clear Calc 114.81, Est GFR (MDRD) Af Amer 117, Est GFR (MDRD) Non-Af 96, BUN/Creatinine Ratio 14.2, Glucose 138 H, Calcium 8.8, C-React Prot Ext Range 183.00 H 06/09/21 04:23: Fluid Crystals SEE PATH REV, Fluid Crystal Source SYNOVIAL, Fl Crystal Path Review Will follow, Synovial Source RIGHT KNEE, Synovial Color Yellow, Synovial Appearance Turbid, Synovial WBC 115.6000 H, Synovial RBC 0.020 H, Synovial Tot Cell Ct 116.2200 H, Synov Polynuclear WBCs 103.700, Synov Mononuclear WBCs 11.900, Synovial Neutrophils 96 H, Synovial Lymphocytes 3, Synovial Monocytes 1, Synovial Path Comment May follow Micro: Microbiology 06/09/21 04:23 Fluid - Synovial (joint) Gram Stain - Final Radiology Impression Knee X-Ray 06/09/21 03:55 IMPRESSION: Moderate joint effusion of the knee. Electronically Signed: Jesusita العلي MD at 4:41 EST Tel , Service support , Brain CT 06/09/21 06:24 IMPRESSION: Normal unenhanced CT scan of the brain. Electronically Signed: Jesusita العلي MD at 7:12 EST Tel , Service support ,
--- NOTE | 2021-06-09 13:33 | PCM.OPRPT ---
Report of Operation Date of Procedure: 06/09/21 Pre-Operative Diagnosis: Right knee periprosthetic joint infection Post-Operative Diagnosis: Right knee periprosthetic joint infection Surgery/Procedure Performed:: Irrigation debridement with 1 component revision right knee, complete synovectomy Description of Surgical Findings:: Complete synovectomy. 10 mm polyethylene was used. Surgeon: Minesh Augustine teletype telegrapher: Trevin Moreno Type of Anesthesia: General Anesthesiologist: Boom Martínez Special Medications: 2 g Ancef IV after cultures were taken. 1 g vancomycin powder. 2 g TXA lavage and wound prior to closure. Specimen's removed: 3 separate specimens were sent to microbiology Estimated Blood Loss (mL): 75 Fluids Replaced: 1600 mL crystalloid Description of Procedure: 41 yo m history of r UKA in 2017 presents with right painful swollen knee and evidence consistent with periprosthetic joint infection. Reviewed options were discussed the patient. Based on acuity of the symptoms and organism irrigation debridement with polyethylene exchange is recommended. Risks and benefits of the procedure were discussed with the patient including but not limited to blood loss, DVTs, PEs, neurovascular damage, infection, general risk of anesthesia including loss of life. Demonstrated understanding and was able to sign informed consent. On the date of procedure patient'sr lower extremity was marked in the preoperative area. The patient was then taken back to the operating room where the patient was placed on the table in the supine position. All bony prominences were identified a well-padded. Anesthesia assumed control of the C-spine and airway and remained controlled throughout the remainder of the procedure. A tourniquet was placed on the operative thigh and the leg was prepped in a sterile fashion. The surgeon then scrubbed at this time .Upon reentering the room left lower extremity was draped in a standard orthopedic fashion. A timeout was then called and everyone agreed upon the side, the site, the procedure to be performed, patient's identity and antibiotics given. A midline skin incision was made and sharp dissection was taken down through skin subcutaneous tissue and fat. Appropriate flaps were elevated medially and laterally. His arthrotomy was identified and the standard medial parapatellar incision was made and the patella was subluxed laterally. The standard deep MCL release was done. At this point an aggressive synovectomy commenced. Our attention was first turned towards the subpatellar pouch and all suspicious synovium and tissues were debrided. We then directed our attention towards medial lateral gutters were these tissues were aggressively debrided. Knee was then flexed up the polyethylene was removed. Once polyethylene was removed we did the remainder of the synovium in the medial and lateral gutters and along the lateral structures and MCL. We then debrided the posterior knee. Knee was flexed up and culture was taken from the femoral notch. And also there was a membrane beneath the tibial baseplate that was removed and sent for culture. He had completed our synovectomy and were happy with the joint. We then used a chlorahexadine scrub sponge and physically scrub the metal implants using a scrub sponge but nothing abrasive. We also scrubbed the remainder of the wound with chlorhexidine. 6 L of normal saline were then irrigated throughout the wound with low-pressure lavage and the wound was once again explored. All remaining tissue that was suspicious was seen in the wound was once again irrigated with normal saline. 10 mm polyethylene was then opened and put back into place after appropriate trialing. Tourniquet was let down and hemostasis was obtained as well as possible. Lateral drain was placed in 2 g of vancomycin powder were placed in the wound/joint. Once the final components were placed the wound was copiously irrigated with normal saline solution. The wound was closed in a layer webb fashion using #1 vicryl interrupted sutures for the arthrotomy, 2-0 interrupted Vicryl for the subcuticular layer and taya for final skin closure. A sterile compressive dressing was then placed. The patient was then awakened from anesthesia, transferred to the [facility] and transferred to the PACU for recovery. Post op plan patient is weightbearing as tolerated, activity as tolerated. Infectious disease will manage antibiotics. Patient has gram-positive organism on Gram stain we will start cefazolin and vancomycin. Patient will require PICC line which should be placed for 6 weeks of IV antibiotics. Aspirin 81 mg twice daily for 4 weeks for DVT prophylaxis. Dressing can be removed on postop day 5. Taya out on postop day 13. Follow-up in office in 2 weeks. Grafts/Implants Used: [employer] 10 mm size 5 polyethylene Complications No intraoperative complications Admit VTE Documentation VTE Present on Admission: No VTE Mechan Device Prophylaxis: SCD's and Thigh High CLARA Hose VTE Pharm Prophylaxis ordered?: Yes
[2021-06-09] MEDS: Vancomycin IV 1,000 MG/20 ML Vial 1000 MG OPERA.SITE (15:40)
--- NOTE | 2021-06-09 16:09 | PCM.RX.CS ---
Consult Type of Consult: New start Suspected Infection: Other - Periprosthetic Joint Infection Labs: Sodium 133 mmol/L (136-145) L 06/09/21 03:30 Potassium 3.8 mmol/L (3.5-5.1) 06/09/21 03:30 Chloride 100 mmol/L (98-107) 06/09/21 03:30 Carbon Dioxide 24.0 mmol/L (21.0-32.0) 06/09/21 03:30 Anion Gap 9 (5-15) 06/09/21 03:30 BUN 13 mg/dL (7-18) 06/09/21 03:30 Creatinine 0.92 mg/dL (0.70-1.30) 06/09/21 03:30 Est GFR (MDRD) Af Amer 117 mL/min (>60) 06/09/21 03:30 Est GFR (MDRD) Non-Af 96 mL/min (>60) 06/09/21 03:30 BUN/Creatinine Ratio 14.2 RATIO (10-20) 06/09/21 03:30 Glucose 138 mg/dL (74-106) H 06/09/21 03:30 Microbiology: Microbiology 06/09/21 04:23 Fluid - Synovial (joint) Gram Stain - Final Goal Trough: 15-20 mcg/mL Pharmacy Plan for Drug Dosing: NEW START IV VANCOMYCIN Consulting Physician: DR. ALEXANDER Indication: PERIPROSTHETIC JOINT INFECTION Goal Trough: 15-20 SrCr: 0.92 CrCl: 114.81 ML/MIN Comments: 1500MG STANDARD DOSE TO BE GIVEN @ 1700 06/09/21 Vancomcyin Dose: 1250MG Q8H TO START AT 0200 06/10/21 Pending Level: VANCOMYCIN TROUGH @ 1730 06/10/21 Pharmacy Service will continue to monitor and adjust dosing as required. Labs to be done on [date and time ordered]: VANCOMYCIN TROUGH @ 1730 06/10/21
--- NOTE | 2021-06-09 16:20 | RAD_ITS ---
STUDY: X-RAY - RIGHT KNEE REASON FOR EXAM: Male, 41 years old. post op -- AP and Lateral xray of operative knee in PACU TECHNIQUE: 2 view(s) of the knee. COMPARISON: June 09, 2021 FINDINGS: Newly placed medial compartment prosthetic components demonstrate good bony contact and alignment. Expected postoperative air and swelling and fluid noted. Overlying skin taya are also present. Normal proximal tibiofibular articulation. There is mild degenerative arthrosis of the patellofemoral articulation. RAD/Knee 1 or 2 Views IMPRESSION: Medial compartment prosthetic components. Electronically Signed: Tye Lock MD at 18:17 EST , Service support ,
[2021-06-09] MEDS: Lactated Ringers 1,000 ML 999 ML IV (17:00)
[2021-06-09] MEDS: Acetaminophen 500 MG Tablet 1000 MG PO (19:53)
[2021-06-09] MEDS: oxyCODONE 5 MG Tablet PO (20:03)
[2021-06-09] MEDS: Cefazolin 1 GM/50 ML BAG IV (21:56)
[2021-06-09] MEDS: Aspirin 81 MG TAB.CHEW PO (21:56)
[2021-06-09] MEDS: Senna/Docusate Sodium 1 Tablet 2 TABLET PO (21:56)
[2021-06-10 02:09] VITALS: BP 120/74; PULSE 108; RESP 18; TEMP 38.8; O2SAT 92
[2021-06-10] MEDS: oxyCODONE 5 MG Tablet PO ×3 (02:19→13:04)
[2021-06-10] MEDS: Ibuprofen 400 MG Tablet PO ×2 (02:42→20:15)
[2021-06-10 05:15] VITALS: TEMP 36.9
[2021-06-10] MEDS: Cefazolin 1 GM/50 ML BAG IV (05:31)
[2021-06-10] MEDS: Acetaminophen 500 MG Tablet 1000 MG PO ×3 (05:31→21:35)
[2021-06-10 06:13] LABS: Absolute Lymphocyte Count 1.09 X10^3/uL (0.83-4.51); Basophil# 0.05 X10^3/uL; Basophil% 0.2 % (0-1); Eosinophil# 0.06 X10^3/uL; Eosinophils% 0.3 % (0-5); Hematocrit 32.2 % (40-54); Lymphocyte # 1.09 X10^3/ul (0.83-4.51); Lymphocyte % 5.3 % (19-41); Mean Corp Hgb Conc 34.2 g/dL (32-36); Mean Corpuscular Hgb 27.3 pg (27.0-32.0); Mean Corpuscular Volume 79.9 fL (80-94); Monocyte# 1.08 X10^3/uL; Monocyte% 5.3 % (0-10); NRBC Flagged by Analyzer 0 % (0-5); Neutrophil # 17.96 X10^3/uL (2.7-7.7); Platelet Count 332 K/mm3 (150-450); RBC Distribution Width CV 12.2 % (11.6-14.6); RBC Distribution Width SD 35.6 fl (35.1-43.9); Red Blood Count 4.03 M/mm3 (4.6-6.2); White Blood Count 20.4 K/mm3 (4.4-11.0)
[2021-06-10 06:35] LABS: Anion Gap 8 (5-15); BUN 15 mg/dL (7-18); BUN/Creat Ratio 12.3 RATIO (10-20); Calcium,Total 8.2 mg/dL (8.5-10.1); Chloride 100 mmol/L (98-107); Creatinine, Serum 1.22 mg/dL (0.70-1.30); EST Glomerular Filtration Rate 69 mL/min (>60); Est Glom Filt Rate - Afr Amer 84 mL/min (>60); Estimated Creatinine Clearance 86.58 ml/min; Glucose 102 mg/dL (74-106); Potassium 3.9 mmol/L (3.5-5.1); Sodium Level 134 mmol/L (136-145)
[2021-06-10 07:23] VITALS: O2SAT 96
[2021-06-10 08:00] VITALS: BP 106/56; PULSE 83; RESP 18; TEMP 36.4; O2SAT 97
[2021-06-10] MEDS: Ensure Surgery 237 ML LIQUID PO ×2 (08:13→13:04)
[2021-06-10] MEDS: Senna/Docusate Sodium 1 Tablet 2 TABLET PO ×2 (08:15→21:35)
[2021-06-10] MEDS: Aspirin 81 MG TAB.CHEW PO ×2 (08:15→21:35)
[2021-06-10] MEDS: Famotidine 20 MG Tablet PO (08:20)
[2021-06-10 09:47] LABS: Pathologist Review Reviewed
--- NOTE | 2021-06-10 09:52 | PCM.CONS.GEN ---
Assessment & Plan Assessment/Plan (1) Septic arthritis of knee: PLAN: Based on the initial synovial fluid culture of the right knee from yesterday growing alpha Streptococcus we will treat with ceftriaxone 2 g IV daily. We will set up a PICC line for IV access. Closely follow the intraoperative cultures from yesterday. HPI Consult Data Date of Consult: 06/10/21 HPI Narrative HPI Narrative: DELFINA GARCIA, is a 41 M who presents Acute onset of right knee pain.Patient states that he had an upper respiratory illness roughly 5 days ago, Then he developed acute right knee pain this past Tuesday.Patient was seen in the emergency department yesterday underwent arthrocentesisOf the right knee that appeared purulent over 100,000 white cells in the synovial fluid.Patient was taken to the operatingRoom for debridement of the right knee and exchange of the polyethylene liner.Patient does have a history of osteoarthritis underwent a left total knee arthroplasty in right partial knee arthroplasty.The right knee synovial fluid is growing an alpha Streptococcus. Operative cultures are pending.Patient does state a fever when he was at home prior to coming to the hospital. [facility] Home Medications prednisone 40 mg PO BID 06/09/21 [History Last Taken Unknown] Allergy/AdvReac Type Severity Reaction Status Date / Time No Known Allergies Allergy Verified 01/30/20 09:17 Surgical History History of bilateral knee replacement Social History Smoking Status: Current some day smoker tobacco type: cigarettes Physical Exam Narrative Patient is alert and responsive does not appear toxic, he has a partial dentition, lungs are clear heart exam S1-S2 no murmurs appreciated abdomen soft nontender. Right knee dressings are in place. Medical Records Data Medical Nutrition Assessment Dietitian: Malnutrition Criteria Met Start: 06/09/21 15:33 Freq: Status: Active Protocol: Document 06/09/21 15:33 RMA (Rec: 06/09/21 15:33 RMA [id number]) Nutrition Malnutrition Evidence of Malnutrition Exists Yes Malnutrition (severe): Acute Illness/Injury Evidenced By Suboptimal Energy Intake ( Severe),Weight Loss (Severe) Clinical Problem Acute Disease or Injury Related Malnutrition Etiology Severe pro/calorie malnutrition in the context of acute injury related to inflammation/sepsis Signs/Symptoms as evidenced by ~5% wt loss x 1 week, poor oral intake meeting less than 50-75% estimated nutrition needs x 1- 2 weeks Status Active Problem Recommendation Dietitian Recommendations/Changes Resume PO with regular diet post-op. Order 240ml ensure enlive TID w/ meals as diet advanced from NPO. Lab / Micro Data Result Diagrams: 06/10/21 05:45 06/10/21 05:45 Labs: Laboratory Results - last 24 hr 06/09/21 04:23: Fluid Crystals SEE PATH REV, Fluid Crystal Source SYNOVIAL, Fl Crystal Path Review Reviewed, Synovial Source RIGHT KNEE, Synovial Color Yellow, Synovial Appearance Turbid, Synovial WBC 115.6000 H, Synovial RBC 0.020 H, Synovial Tot Cell Ct 116.2200 H, Synov Polynuclear WBCs 103.700, Synov Mononuclear WBCs 11.900, Synovial Neutrophils 96 H, Synovial Lymphocytes 3, Synovial Monocytes 1, Synovial Path Comment May follow 06/10/21 05:45: WBC 20.4 H, RBC 4.03 L, Hgb 11.0 L, Hct 32.2 L, MCV 79.9 L, MCH 27.3, MCHC 34.2, RDW Std Deviation 35.6, RDW Coeff of Bacilio 12.2, Plt Count 332, MPV 9.0, Immature Gran % (Auto) 0.900, Neut % (Auto) 88.0 H, Lymph % (Auto) 5.3 L, [place] % (Auto) 5.3, Eos % (Auto) 0.3, Baso % (Auto) 0.2, Absolute Neuts (auto) 18.0 H, Absolute Lymphs (auto) 1.09, Nucleated RBC % 0 06/10/21 05:45: Sodium 134 L, Potassium 3.9, Chloride 100, Carbon Dioxide 26.0, Anion Gap 8, BUN 15, Creatinine 1.22, Estim Creat Clear Calc 86.58, Est GFR (MDRD) Af Amer 84, Est GFR (MDRD) Non-Af 69, BUN/Creatinine Ratio 12.3, Glucose 102, Calcium 8.2 L Micro: Microbiology 06/09/21 Unknown Tissue - Knee Gram Stain - Final 06/09/21 Unknown Tissue - Knee Gram Stain - Final 06/09/21 04:23 Fluid - Synovial (joint) Gram Stain - Final 06/09/21 04:23 Fluid - Synovial (joint) Body Fluid Culture - Preliminary Alpha Hemolytic Streptococcus Radiology Impression Knee X-Ray 06/09/21 16:20 IMPRESSION: Medial compartment prosthetic components. Electronically Signed: Tye Lock MD at 18:17 EST , Service support ,
--- NOTE | 2021-06-10 11:46 | PN.ORTHO_ITS ---
Subjective Subjective The patient was sitting in bed upon examination. Patient denies any chest pain, shortness of breath, dizziness, lightheadedness, nausea or vomiting, or calf pain. Pain is controlled on medications. No adverse overnight events. Overall patient is doing well today. His pain is being controlled in his right knee. Patient is currently being followed by infectious disease for the septic arthritis. Objective Data Objective Data Vital Signs: Vital Signs Temp Pulse Resp BP Pulse Ox 97.5 F L 83 18 106/56 L 97 06/10/21 08:00 06/10/21 08:00 06/10/21 08:00 06/10/21 08:00 06/10/21 08:00 Oxygen Flow Rate (L/min) 2 Oxygen Delivery Method Room Air Weight: 104.2 kg Body Mass Index (BMI) 31.1 Intake & Output: Intake and Output for Last 24 Hours 06/08/21 06/09/21 06/10/21 23:59 23:59 23:59 Intake Total 2591.25 / 2591.25 2751.25 / 2751.25 Output Total 900 / 900 Balance 2591.25 / 2591.25 1851.25 / 1851.25 Medical Nutrition Assessment Dietitian: Malnutrition Criteria Met Start: 06/09/21 15 :33 Freq: Status: Active Protocol: Document 06/09/21 15:33 RMA (Rec: 06/09/21 15:33 RMA [id number]) Nutrition Malnutrition Evidence of Malnutrition Exists Yes Malnutrition (severe): Acute Illness/Injury Evidenced By Suboptimal Energy Intake ( Severe),Weight Loss (Severe) Clinical Problem Acute Disease or Injury Related Malnutrition Etiology Severe pro/calorie malnutrition in the context of acute injury related to inflammation/sepsis Signs/Symptoms as evidenced by ~5% wt loss x 1 week, poor oral intake meeting less than 50-75% estimated nutrition needs x 1- 2 weeks Status Active Problem Recommendation Dietitian Recommendations/Changes Resume PO with regular diet post-op. Order 240ml ensure enlive TID w/ meals as diet advanced from NPO. Lab / Micro Data Result Diagrams: 06/10/21 05:45 06/10/21 05:45 Labs: Laboratory Results - last 24 hr 06/09/21 04:23: Fluid Crystals SEE PATH REV, Fluid Crystal Source SYNOVIAL, Fl Crystal Path Review Reviewed, Synovial Source RIGHT KNEE, Synovial Color Yellow, Synovial Appearance Turbid, Synovial WBC 115.6000 H, Synovial RBC 0.020 H, Synovial Tot Cell Ct 116.2200 H, Synov Polynuclear WBCs 103.700, Synov Mononuclear WBCs 11.900, Synovial Neutrophils 96 H, Synovial Lymphocytes 3, Synovial Monocytes 1, Synovial Path Comment May follow 06/10/21 05:45: WBC 20.4 H, RBC 4.03 L, Hgb 11.0 L, Hct 32.2 L, MCV 79.9 L, MCH 27.3, MCHC 34.2, RDW Std Deviation 35.6, RDW Coeff of Bacilio 12.2, Plt Count 332, MPV 9.0, Immature Gran % (Auto) 0.900, Neut % (Auto) 88.0 H, Lymph % (Auto) 5.3 L, [place] % (Auto) 5.3, Eos % (Auto) 0.3, Baso % (Auto) 0.2, Absolute Neuts (auto) 18.0 H, Absolute Lymphs (auto) 1.09, Nucleated RBC % 0 06/10/21 05:45: Sodium 134 L, Potassium 3.9, Chloride 100, Carbon Dioxide 26.0, Anion Gap 8, BUN 15, Creatinine 1.22, Estim Creat Clear Calc 86.58, Est GFR (MDR D) Af Amer 84, Est GFR (MDRD) Non-Af 69, BUN/Creatinine Ratio 12.3, Glucose 102, Calcium 8.2 L Micro: Microbiology 06/09/21 Unknown Tissue - Knee Gram Stain - Final 06/09/21 Unknown Tissue - Knee Wound Culture - Preliminary No growth-Final to follow 06/09/21 Unknown Tissue - Knee Gram Stain - Final 06/09/21 Unknown Tissue - Knee Wound Culture - Preliminary No growth-Final to follow 06/09/21 Unknown Tissue - Knee Gram Stain - Final 06/09/21 Unknown Tissue - Knee Wound Culture - Preliminary No growth-Final to follow 06/09/21 04:23 Fluid - Synovial (joint) Gram Stain - Final 06/09/21 04:23 Fluid - Synovial (joint) Body Fluid Culture - Preliminary Alpha Hemolytic Streptococcus Radiography Diagnostic Testing: Radiology Impression Knee X-Ray 06/09/21 16:20 IMPRESSION: Medial compartment prosthetic components. Electronically Signed: Tye Lock MD at 18:17 EST , Service support , Physical Exam Narrative Vital signs stable and afebrile. Patient is able to plantarflex and dorsiflex actively. Sensation is intact to light touch to saphenous, sural, superficial and deep peroneal, and tibial distribution. Dressing is clean dry and intact. Negative Homans bilaterally, negative signs and symptoms of DVT. Const alert, oriented x3 and no apparent distress Assessment & Plan Assessment/Plan (1) Septic arthritis of knee: PLAN: 1. S/P right knee irrigation debridement 1 component revision with polyethylene exchange POD #1 2. Continue Pain Medications: Tylenol and oxycodone 3. DVT Prophylaxis: Dr. Minesh Augustine recommend aspirin 81 mg twice daily for 4 weeks postoperatively for DVT prophylaxis 4. PT/OT: Weightbearing as tolerated 5. H & H: 11.0/32.2, asymptomatic. Postoperative anemia secondary to acute blood loss from surgery without any intra operative complications. 6. Encouraged Incentive Spirometry 7. Continue postoperative medical management per medicine 8. Continue consultation with infectious disease: Joint aspiration did reveal alpha Streptococcus. Intraoperative cultures are pending. Patient is currently on vancomycin. Patient will require PICC line for 6 weeks IV antibiotics. Appreciate input and recommendations with antibiotics with infectious disease. 9. Disposition: Patient orthopedically is stable. We will continue to follow cultures for appropriate antibiotics with recommendation per infectious disease. Patient will require IV antibiotics for 6 weeks. Continue pain medications listed above. Patient will continue with the dressing for 5 days postoperatively. Okay to shower with dressing as long as it remains intact to the skin. Once removed, do not place any ointments, salves, Neosporin over the incision for 6 weeks postoperatively. Patient will require 2-week follow-up with Dr. Minesh Augustine for incision check and staple removal. Case management will need to be involved with appropriate discharge planning. Once medically stable okay for discharge from orthopedic standpoint when medicine clears patient.
--- NOTE | 2021-06-10 12:16 | PN.HOSP_ITS ---
Documented by User: Lala Lawrence NP-Charles 06/10/21 12:22 Subjective Subjective Patient seen and examined. Patient sitting in bed no distress noted. Patient states that pain is currently 3 out of 10 and is tolerable. Objective Data Objective Data Vital Signs: Vital Signs Temp Pulse Resp BP Pulse Ox 97.5 F L 83 18 106/56 L 97 06/10/21 08:00 06/10/21 08:00 06/10/21 08:00 06/10/21 08:00 06/10/21 08:00 Oxygen Flow Rate (L/min) 2 Oxygen Delivery Method Room Air Weight: 229 lb 11.547 oz Body Mass Index (BMI) 31.1 Intake & Output: Intake and Output for Last 24 Hours 06/08/21 06/09/21 06/10/21 23:59 23:59 23:59 Intake Total 2591.25 / 2591.25 2751.25 / 2751.25 Output Total 900 / 900 Balance 2591.25 / 2591.25 1851.25 / 1851.25 Medical Nutrition Assessment Dietitian: Malnutrition Criteria Met Start: 06/09/21 15:33 Freq: Status: Active Protocol: Document 06/09/21 15:33 RMA (Rec: 06/09/21 15:33 RMA [id number]) Nutrition Malnutrition Evidence of Malnutrition Exists Yes Malnutrition (severe): Acute Illness/Injury Evidenced By Suboptimal Energy Intake ( Severe),Weight Loss (Severe) Clinical Problem Acute Disease or Injury Related Malnutrition Etiology Severe pro/calorie malnutrition in the context of acute injury related to inflammation/sepsis Signs/Symptoms as evidenced by ~5% wt loss x 1 week, poor oral intake meeting less than 50-75% estimated nutrition needs x 1- 2 weeks Status Active Problem Recommendation Dietitian Recommendations/Changes Resume PO with regular diet post-op. Order 240ml ensure enlive TID w/ meals as diet advanced from NPO. Lab / Micro Data Result Diagrams: 06/10/21 05:45 06/10/21 05:45 Labs: Laboratory Results - last 24 hr 06/09/21 04:23: Fluid Crystals SEE PATH REV, Fluid Crystal Source SYNOVIAL, Fl Crystal Path Review Reviewed, Synovial Source RIGHT KNEE, Synovial Color Yellow, Synovial Appearance Turbid, Synovial WBC 115.6000 H, Synovial RBC 0.020 H, Syn ovial Tot Cell Ct 116.2200 H, Synov Polynuclear WBCs 103.700, Synov Mononuclear WBCs 11.900, Synovial Neutrophils 96 H, Synovial Lymphocytes 3, Synovial Monocytes 1, Synovial Path Comment May follow 06/10/21 05:45: WBC 20.4 H, RBC 4.03 L, Hgb 11.0 L, Hct 32.2 L, MCV 79.9 L, MCH 27.3, MCHC 34.2, RDW Std Deviation 35.6, RDW Coeff of Bacilio 12.2, Plt Count 332, MPV 9.0, Immature Gran % (Auto) 0.900, Neut % (Auto) 88.0 H, Lymph % (Auto) 5.3 L, [place] % (Auto) 5.3, Eos % (Auto) 0.3, Baso % (Auto) 0.2, Absolute Neuts (auto) 18.0 H, Absolute Lymphs (auto) 1.09, Nucleated RBC % 0 06/10/21 05:45: Sodium 134 L, Potassium 3.9, Chloride 100, Carbon Dioxide 26.0, Anion Gap 8, BUN 15, Creatinine 1.22, Estim Creat Clear Calc 86.58, Est GFR (MDRD) Af Amer 84, Est GFR (MDRD) Non-Af 69, BUN/Creatinine Ratio 12.3, Glucose 102, Calcium 8.2 L Micro: Microbiology 06/09/21 Unknown Tissue - Knee Gram Stain - Final 06/09/21 Unknown Tissue - Knee Wound Culture - Preliminary No growth-Final to follow 06/09/21 Unknown Tissue - Knee Gram Stain - Final 06/09/21 Unknown Tissue - Knee Wound Culture - Preliminary No growth-Final to follow 06/09/21 Unknown Tissue - Knee Gram Stain - Final 06/09/21 Unknown Tissue - Knee Wound Culture - Preliminary No growth-Final to follow 06/09/21 04:23 Fluid - Synovial (joint) Gram Stain - Final 06/09/21 04:23 Fluid - Synovial (joint) Body Fluid Culture - Preliminary Alpha Hemolytic Streptococcus Radiography Diagnostic Testing: Radiology Impression Knee X-Ray 06/09/21 16:20 IMPRESSION: Medial compartment prosthetic components. Electronically Signed: Tye Lock MD at 18:17 EST , Service support , Physical Exam Const alert, oriented x3 and no apparent distress HEENT head/scalp atraumatic Head and Scalp: normocephalic Eyes conjunctivae normal and no scleral icterus Neck full ROM and supple Resp normal respiratory effort, normal air movement and clear to auscultation bilaterally Cardio regular rate, regular rhythm, S1 normal heart sound and S2 normal heart sound GI normal to inspection, nondistended, normoactive bowel sounds, soft to palpation and non-tender Extremity no clubbing, cyanosis or edema Skin Skin Narrative: Postsurgical dressing dry and intact to right knee. Skin is without redness or increased warmth. Generalized mild swelling noted Neuro oriented x3, moves all extremities, no focal motor deficits and no sensory deficits noted Sensorium / Orientation: awake and alert Psych affect normal Assessment & Plan Assessment/Plan (1) Septic arthritis of knee: QUALIFIERS: Laterality: right Septic arthritis organism: streptococcal Qualified Code(s): M00.261 - Other streptococcal arthritis, right knee PLAN: 1. Septic arthritis of the right knee -Patient underwent surgery 06/09/[address] Augustine -Pain currently controlled -Continue Rocephin -Infectious disease following, patient to get PICC line, per infectious disease note will need 6 weeks of IV antibiotics -Postop surgical dressing to stay in place for 5 days, patient is okay to shower -Patient will need to follow-up with Dr. Augustine in 2 weeks -Patient will be discharged home on 81 mg aspirin x4 weeks per Ortho recommendations DVT prophylaxis-SCDs This patient was seen by TANNER Calvin under the supervision of Dr. Babcock. Documented by User: Dr. Jhon Babcock MD 06/10/21 14:27 Objective Data Lab / Micro Data Result Diagrams: 06/10/21 05:45 06/10/21 05:45 Charges/Coding Addendum Addendum: Dr. Babcock: I personally reviewed the chart and examined the patient, and agree with the above findings. 41-year-old male presented to the hospital with what appeared to be septic knee. He denies any direct trauma to the knee but states that he did have an upper respiratory infection about a week prior to the knee pain. He was started on broad-spectrum antibiotics and infectious disease was consulted as was orthopedic surgery. He is status post washout on 06/09/2021 with an antibiotic spacer as he had had a previous knee replacement on the right. He feels much better today after surgery will continue with oral pain medications a s well as IV Rocephin per the recommendations of ID. We will await a PICC line placement prior to discharge. Visit Charges Inpatient E&M: 01031 Subs Hosp L2
[2021-06-10 14:00] VITALS: BP 110/62; PULSE 99; RESP 18; TEMP 36.9; O2SAT 95
--- NOTE | 2021-06-10 14:53 | CASEMGMT ---
Addendum entered by Lyndsay Grijalva 06/10/21 15:41: TC to [facility], left message on intake vm regarding referral for pt. Addendum entered by Lyndsay Grijalva 06/10/21 15:19: TC back from [facility], they cannot staff pt. Original Note: RN CM in to pt room, at bedside. Patient was provided a list of [facility] providers including quality and resource use data and consistent with the patient?s preferred geographic region, medical needs, and insurance network. The patient?s preferred provider is [facility], [facility] and [facility]. TC to [facility], they do not have nursing availability until next week. TC to [facility], spoke with [facility], they do not have staffing, nor accept self pay. TC to [facility], left message with liayunior requested returned call and referral info. TC to Jamal at [facility], they do not accept self pay patients either. Pt did not have a preference on infusion company. Referral faxed to I at this time.
[2021-06-10] MEDS: 0.9% Saline Lock 10 ML Syringe IV (20:15)
[2021-06-10] MEDS: Ondansetron 4 MG/2 ML Vial IV (20:15)
[2021-06-10 21:46] VITALS: BP 134/75; PULSE 78; RESP 16; TEMP 38.1; O2SAT 97
[2021-06-11 03:46] VITALS: BP 121/79; PULSE 76; RESP 16; TEMP 36.4; O2SAT 99
[2021-06-11] MEDS: Acetaminophen 500 MG Tablet 1000 MG PO ×2 (06:35→13:18)
--- NOTE | 2021-06-11 07:41 | PN.ORTHO_ITS ---
Subjective Subjective The patient was sitting in bed upon examination. Patient denies any chest pain, shortness of breath, dizziness, lightheadedness, nausea or vomiting, or calf pain. Pain is controlled on medications. No adverse overnight events. Patient does complain of stiffness with his right knee. He did get physical therapy yesterday. Patient also he is followed by infectious disease. had his PICC line placed yesterday Patient did have gram positive cocci on Gram stain on the 3 tissue specimen. He is currently on vancomycin. Objective Data Objective Data Vital Signs: Vital Signs Temp Pulse Resp BP Pulse Ox 97.5 F L 76 16 121/79 H 99 06/11/21 03:46 06/11/21 03:46 06/11/21 03:46 06/11/21 03:46 06/11/21 03:46 Oxygen Flow Rate (L/min) 2 Oxygen Delivery Method Room Air Weight: 104.2 kg Body Mass Index (BMI) 31.1 Intake & Output: Intake and Output for Last 24 Hours 06/09/21 06/10/21 06/11/21 23:59 23:59 23:59 Intake Total 2591.25 / 2591.25 4161.25 / 4161.25 400 / 400 Output Total 1250 / 1250 1200 / 1200 Balance 2591.25 / 2591.25 2911.25 / 2911.25 -800 / -800 Medical Nutrition Assessment Dietitian: Malnutrition Criteria Met Start: 06/09/21 15:33 Freq: Status: Active Protocol: Document 06/09/21 15:33 RMA (Rec: 06/09/21 15:33 RMA [id number]) Nutrition Malnutrition Evidence of Malnutrition Exists Yes Malnutrition (severe): Acute Illness/Injury Evidenced By Suboptimal Energy Intake ( Severe),Weight Loss (Severe) Clinical Problem Acute Disease or Injury Related Malnutrition Etiology Severe pro/calorie malnutrition in the context of acute injury related to inflammation/sepsis Signs/Symptoms as evidenced by ~5% wt loss x 1 week, poor oral intake meeting less than 50-75% estimated nutrition needs x 1- 2 weeks Status Active Problem Recommendation Dietitian Recommendations/Changes Resume PO with regular diet post-op. Order 240ml ensure enlive TID w/ meals as diet advanced from NPO. Lab / Micro Data Result Diagrams: 06/10/21 05:45 06/10/21 05:45 Labs: Laboratory Results - last 24 hr 06/09/21 04:23: Fluid Crystals SEE PATH REV, Fluid Crystal Source SYNOVIAL, Fl Crystal Path Review Reviewed, Synovial Source RIGHT KNEE, Synovial Color Yellow, Synovial Appearance Turbid, Synovial WBC 115.6000 H, Synovial RBC 0.020 H, Synovial Tot Cell Ct 116.2200 H, Synov Polynuclear WBCs 103.700, Synov Mononuclear WBCs 11.900, Synovial Neutrophils 96 H, Synovial Lymphocytes 3, Synovial Monocytes 1, Synovial Path Comment May follow Micro: Microbiology 06/09/21 Unknown Tissue - Knee Gram Stain - Final 06/09/21 Unknown Tissue - Knee Wound Culture - Preliminary No growth-Final to follow 06/09/21 Unknown Tissue - Knee Gram Stain - Final 06/09/21 Unknown Tissue - Knee Wound Culture - Preliminary No growth-Final to follow 06/09/21 Unknown Tissue - Knee Gram Stain - Final 06/09/21 Unknown Tissue - Knee Wound Culture - Preliminary No growth-Final to follow 06/09/21 04:23 Fluid - Synovial (joint) Gram Stain - Final 06/09/21 04:23 Fluid - Synovial (joint) Body Fluid Culture - Preliminary Alpha Hemolytic Streptococcus Physical Exam Narrative Vital signs stable and afebrile. Patient is able to plantarflex and dorsiflex actively. Sensation is intact to light touch to saphenous, sural, superficial and deep peroneal, and tibial distribution. Dressing is clean dry and intact. Negative Homans bilaterally, negative signs and symptoms of DVT. Const alert, oriented x3 and no apparent distress General Appearance: cooperative and diaphoretic Orientation / Consciousness: awake HEENT normocephalic Eyes PERRL Neck no JVD Resp normal respiratory effort Cardio Cardio Narrative: Regular pulse rate GI non-distended Extremity Extremity Narrative: Right lower extremity: No erythema. Significant increase in warmth. Massive effusion. Pain with passive range of motion. Stable to varus and valgus stress. Incision is clean dry and intact. Neurovascular intact distally. Psych mental status grossly normal Assessment & Plan Assessment/Plan (1) Septic arthritis of knee: QUALIFIERS: Septic arthritis organism: streptococcal Laterality: right Qualified Code(s): M00.261 - Other streptococcal arthritis, right knee PLAN: 1. S/P right knee irrigation debridement 1 component revision with polyethylene exchange POD #2 2. Continue Pain Medications: Tylenol and oxycodone 3. DVT Prophylaxis: Dr. Minesh Augustine recommend aspirin 81 mg twice daily for 4 weeks postoperatively for DVT prophylaxis 4. PT/OT: Weightbearing as tolerated 5. Encouraged Incentive Spirometry 6. Continue postoperative medical management per medicine 7. Continue consultation with infectious disease: Joint aspiration did reveal alpha Streptococcus. Intraoperative tissues on Gram stain did reveal gram- positive cocci on all 3. Patient has had his PICC line placed. Patient is currently on vancomycin. Patient will require PICC line for 6 weeks IV antibiotics. Appreciate input and recommendations with antibiotics with infectious disease for discharge. Patient will also require follow-up per infectious disease recommendations. 8. Disposition: Patient orthopedically is stable. We will sign off of patient today. I did discuss with charge nurse scheduling follow-up for 2 weeks for incision check and staple removal. Continue pain medications listed above. Patient will continue with the dressing for 5 days postoperatively. Okay to shower with dressing as long as it remains intact to the skin. Once removed, do not place any ointments, salves, Neosporin over the incision for 6 weeks postoperatively. Patient will require 2-week follow-up with Dr. Minesh Augustine for incision check and staple removal. Case management will need to be involved with appropriate discharge planning. Once medically stable okay for discharge from orthopedic standpoint when medicine clears patient and antibiotics have bee n finalized per infectious disease. Appreciate consultation and please contact orthopedics with any concerns or questions.
[2021-06-11 07:56] LABS: Absolute Lymphocyte Count 0.97 X10^3/uL (0.83-4.51); Absolute Neutrophil Count 22.6 X10^3/uL (2.0-7.7); Basophil# 0.04 X10^3/uL; Basophil% 0.2 % (0-1); Eosinophil# 0.08 X10^3/uL; Eosinophils% 0.3 % (0-5); Hematocrit 31.9 % (40-54); Lymphocyte # 0.97 X10^3/ul (0.83-4.51); Lymphocyte % 3.9 % (19-41); Mean Corp Hgb Conc 34.5 g/dL (32-36); Mean Corpuscular Hgb 27.4 pg (27.0-32.0); Mean Corpuscular Volume 79.6 fL (80-94); Mean Platelet Vol. 8.9 fl (6.2-12.0); Monocyte# 0.82 X10^3/uL; Monocyte% 3.3 % (0-10); NRBC Flagged by Analyzer 0 % (0-5); Neutrophil % 91.7 % (47-70); POSITIVE DIFFERENTIAL YES; Platelet Count 382 K/mm3 (150-450); RBC Distribution Width CV 12.2 % (11.6-14.6); RBC Distribution Width SD 35.4 fl (35.1-43.9); Red Blood Count 4.01 M/mm3 (4.6-6.2); White Blood Count 24.7 K/mm3 (4.4-11.0)
[2021-06-11 08:02] LABS: Differential Indicated SCAN CRITERIA MET
[2021-06-11 08:16] LABS: Anion Gap 11 (5-15); BUN 17 mg/dL (7-18); BUN/Creat Ratio 17.7 RATIO (10-20); Chloride 98 mmol/L (98-107); Creatinine, Serum 0.96 mg/dL (0.70-1.30); EST Glomerular Filtration Rate 91 mL/min (>60); Est Glom Filt Rate - Afr Amer 110 mL/min (>60); Estimated Creatinine Clearance 110.02 ml/min; Glucose 110 mg/dL (74-106); Potassium 3.5 mmol/L (3.5-5.1); Sodium Level 136 mmol/L (136-145)
[2021-06-11] MEDS: Morphine 4 MG/ML Syringe IV ×2 (08:33→13:17)
[2021-06-11] MEDS: 0.9% Saline Lock 10 ML Syringe IV ×2 (08:34→14:11)
[2021-06-11] MEDS: Ensure Surgery 237 ML LIQUID PO (08:36)
[2021-06-11 09:19] LABS: Platelet Estimate ADEQUATE (ADEQ); Red Cell Morphology NORM C+C NORMAL (NORM C&C)
[2021-06-11 09:46] VITALS: BP 130/54; PULSE 70; RESP 18; TEMP 37; O2SAT 98
--- NOTE | 2021-06-11 09:53 | CASEMGMT ---
Addendum entered by Lyndsay Grijalva 06/11/21 15:02: Faxed I and N rx for IV atb and dc instructions. Original Note: Received tc back from [facility], unable to accept pt. Referral faxed to [facility], received call from [place] they are able to see pt on Tuesday. Spoke with hospitalist who is fine with RN here teaching pt and how to flush IV and HHC starting on Tuesday. Notified RN of this. Per Nellie at [facility], pt cost is $169.26/wk. RN CM in to pt room to make aware of the above. Pt/ agreeable to learning and feel this is something they can do. Aware therapy is ordered at home. Pt will borrow a walker from friend. He does not want this RN CM to order one. He is aware [facility] will be calling him and will deliver tonight. Also aware that HHC will start on Tuesday. Pt and deny further questions at this time.
--- NOTE | 2021-06-11 10:32 | NURSING ---
pt out ambulating in hallway with therapy- pt starts to have emesis. oral hygiene provided.
[2021-06-11] MEDS: Senna/Docusate Sodium 1 Tablet 2 TABLET PO (10:59)
[2021-06-11] MEDS: Docusate Sodium 100 MG Capsule 200 MG PO (10:59)
[2021-06-11] MEDS: Aspirin 81 MG TAB.CHEW PO (10:59)
[2021-06-11] MEDS: Polyethylene Glycol 3350 17 GM PACKET PO (11:00)
[2021-06-11] MEDS: Famotidine 20 MG Tablet PO (11:00)
--- NOTE | 2021-06-11 11:28 | DCINST_ITS ---
Discharge Instructions Diet Discharge Diet: No restrictions Activity Discharge Activity: Return to Normal Activity Weight Bearing Status: Weight bearing as tolerated Dressing / Incision Call your doctor if you observe: Fever of 101 or Higher, Numbness or Tingling, Shortness of breath, Dizziness, Chest pain, Increased palpitations (irregular heartbeat) and Calf discomfort Follow Up Care Please Follow Up With: Primary care provider When: Within the next two weeks. Test Results: Test results from this visit will be discussed in further detail at your follow-up appointment, if applicable. Discharge Plan Admission Admit Date/Time: 06/09/21 06:39 Primary Reason for Your Visit: Right knee infection Attending Provider: Jhon Babcock Primary Care Provider: Nellie Blount Consulting Providers: Minesh Augustine ; Godo Zuniga Instructions Additional Instructions / Restrictions: * Hand written Rx for Ceftriaxone 2g/daily x 6 weeks weeks given to Social wo rker. * Hand written Rx for CBC, CMP and ESR/1x week x 6 weeks given to washtub worker. Discharge Orders/Prescriptions Prescriptions: Discontinued prednisone 10 mg Tablet 40 mg PO BID RF: 0 Referrals / Follow Up: Nellie Blount MD [Primary Care Provider] - Luke Borges PA-C [PHYSICIAN INDUSTRIAL GAS SERVICER HELPER] - 06/22/21 9:45 am Good Zuniga MD [STAFF PHYSICIAN] - Within 1 Week Disposition Disposition (needs filled in before D/C Order can be placed): Home Health Service
[2021-06-11] MEDS: oxyCODONE 5 MG Tablet PO (14:08)
[2021-06-11] MEDS: Ondansetron 4 MG/2 ML Vial IV (14:11)
--- NOTE | 2021-06-11 15:06 | DS.PCM_ITS ---
Documented by User: Jason AGOSTO 06/11/21 15:15 Providers Date of Admission: 06/09/21 Primary Care Physician: Dr. Nellie Blount MD Consultations 06/09/21 07:33 Consult: Orthopedics Routine Consulting Provider: Minesh Augustine Reason for Consult: septic right knee EMERGENT Consult: Yes Notified: Yes Date Notified: 06/09/21 Time Notified: 06:41 Method of Notification: Text 06/09/21 15:44 Consult: Infectious Disease Routine Consulting Provider: Good Zuniga Reason for Consult: right PJI EMERGENT Consult: No Notified: Yes Date Notified: 06/10/21 Time Notified: 08:06 Method of Notification: Answering Service Reason For Visit: SEPTIC ARTHRITIS RIGHT KNEE Diagnosis Discharge Diagnosis (1) Septic arthritis of knee: Status: Acute Code(s): M00.9 - Pyogenic arthritis, unspecified Qualifiers: Laterality: right Septic arthritis organism: streptococcal Qualified Code(s): M00.261 - Other streptococcal arthritis, right knee Medications at Discharge Home Medications aspirin 81 mg PO BID #60 tab 06/11/21 oxycodone 5 mg PO TID PRN 3 Days #10 tab 06/11/21 Hospital Course Summary of Care Provided Minutes Spent on Discharge: 35 Hospital Course: Patient is a 42-year-old male who was admitted to the hospital on 06/09/2021 for evaluation and management of septic arthritis of the right knee status post partial knee replacement. Throughout admission patient was seen and evaluated by orthopedics and infectious disease. Orthopedics proceeded with irrigation and debridement of the right knee. Infectious disease evaluated patient and wanted PICC line placed for 6 weeks of IV antibiotics. Patient will be discharged on 06/11/2021 with PICC line, ceftriaxone 2 g daily to be administered for 6 weeks, patient is to have CBC CMP and ESR weekly for 6 weeks, patient have aspirin 81 mg twice daily for 4 weeks for postoperative DVT prophylaxis, as needed pain medications given on discharge. Patient is to follow-up with infectious disease and orthopedics within the next 2 weeks. Patient seen by Jason Lowe PA-C, under the supervision of Dr. Babcock. Physical Exam Narrative Patient is a 41-year-old male lying in bed, alert and orient x3. Patient reports improvement in his leg pain from admission. Denies development of any new symptoms overnight. Does not appear in acute distress. Const alert, oriented x3 and no apparent distress HEENT normocephalic, head/scalp atraumatic and hearing grossly normal bilaterally Eyes PERRL, EOMs intact bilaterally and conjunctivae normal Neck no lymphadenopathy, supple and no JVD Resp normal respiratory effort, no retractions, no use of accessory muscles and clear to auscultation bilaterally Cardio regular rate, regular rhythm, no murmurs and no JVD GI normal to inspection, nondistended, normoactive bowel sounds, soft to palpation and non-tender Extremity no clubbing, cyanosis or edema Skin no rashes or lesions noted, no wounds and skin turgor normal Neuro CN's II-XII intact bilaterally Psych affect normal Weight / BMI Weight Weight: 229 lb 11.547 oz Body Mass Index (BMI) 31.1 ABG / Lab / Microbiology Data Result Diagrams: 06/11/21 07:48 06/11/21 07:48 Laboratory: Laboratory Results - last 24 hr 06/11/21 07:48: WBC 24.7 H, RBC 4.01 L, Hgb 11.0 L, Hct 31.9 L, MCV 79.6 L, MCH 27.4, MCHC 34.5, RDW Std Deviation 35.4, RDW Coeff of Bacilio 12.2, Plt Count 382, MPV 8.9, Immature Gran % (Auto) 0.600, Neut % (Auto) 91.7 H, Lymph % (Auto) 3.9 L, Wilkin % (Auto) 3.3, Eos % (Auto) 0.3, Baso % (Auto) 0.2, Absolute Neuts (auto) 22.6 H, Absolute Lymphs (auto) 0.97, Nucleated RBC % 0, Differential Comment , Platelet Estimate ADEQUATE, RBC Morphology NORM C+C 06/11/21 07:48: Sodium 136, Potassium 3.5, Chloride 98, Carbon Dioxide 27.0, Anion Gap 11, BUN 17, Creatinine 0.96, Estim Creat Clear Calc 110.02, Est GFR (MDRD) Af Amer 110, Est GFR (MDRD) Non-Af 91, BUN/Creatinine Ratio 17.7, Glucose 110 H, Calcium 9.0 Microbiology: Microbiology 06/09/21 04:23 Fluid - Synovial (joint) Gram Stain - Final 06/09/21 04:23 Fluid - Synovial (joint) Body Fluid Culture - Preliminary Streptococcus constellatus pha 06/09/21 Unknown Tissue - Knee Gram Stain - Final 06/09/21 Unknown Tissue - Knee Wound Culture - Preliminary Alpha hemolytic organism 06/09/21 Unknown Tissue - Knee Gram Stain - Final 06/09/21 Unknown Tissue - Knee Wound Culture - Preliminary Alpha hemolytic organism 06/09/21 Unknown Tissue - Knee Gram Stain - Final 06/09/21 Unknown Tissue - Knee Wound Culture - Preliminary Alpha hemolytic organism D/C Instructions Discharge Diet: No restrictions Weight Bearing Status: Weight bearing as tolerated Call your doctor if you observe: Fever of 101 or Higher, Numbness or Tingling, Shortness of breath, Dizziness, Chest pain, Increased palpitations (irregular heartbeat) and Calf discomfort Please Follow Up With: Primary care provider When: Within the next two weeks. Meaningful Use Info Meaningful Use Diagnoses (Choose all that apply): None applicable Discharge Plan Admission Admit Date/Time: 06/09/21 06:39 Primary Reason for Your Visit: Right knee infection Attending Provider: Jhon Babcock Primary Care Provider: Nellie Blount Consulting Providers: Minesh Augustine ; Good Zuniga Instructions Additional Instructions / Restrictions: * Hand written Rx for Ceftriaxone 2g/daily x 6 weeks weeks given to pet crematory worker. * Hand written Rx for CBC, CMP and ESR/1x week x 6 weeks given to pet crematory worker. Discharge Orders/Prescriptions Prescriptions: New aspirin 81 mg Tablet,Chewable 81 mg PO BID Qty: 60 RF: 0 oxycodone 5 mg tablet 5 mg PO TID PRN (Reason: pain) 3 Days Qty: 10 RF: 0 Discontinued prednisone 10 mg Tablet 40 mg PO BID RF: 0 Referrals / Follow Up: Nellie Blount MD [Primary Care Provider] - Good Zuniga MD [STAFF PHYSICIAN] - Within 1 Week Luke Borges PA-C [PHYSICIAN SUPERVISOR CELL MAINTENANCE] - 06/22/21 9:45 am Disposition Disposition (needs filled in before D/C Order can be placed): Home Health Service Documented by User: Dr. Jhon Babcock MD 06/11/21 15:35 Providers Date of Admission: 06/09/21 Reason For Visit: SEPTIC ARTHRITIS RIGHT KNEE Medications at Discharge Home Medications aspirin 81 mg PO BID #60 tab 06/11/21 oxycodone 5 mg PO TID PRN 3 Days #10 tab 06/11/21 ABG / Lab / Microbiology Data Result Diagrams: 06/11/21 07:48 06/11/21 07:48 Discharge Plan Admission Admit Date/Time: 06/09/21 06:39 Primary Reason for Your Visit: Right knee infection Attending Provider: Jhon Babcock Primary Care Provider: Nellie Blount Consulting Providers: Minesh Augustine ; Good Zuniga Instructions Additional Instructions / Restrictions: * Hand written Rx for Ceftriaxone 2g/daily x 6 weeks weeks given to pet crematory worker. * Hand written Rx for CBC, CMP and ESR/1x week x 6 weeks given to pet crematory worker. Discharge Orders/Prescriptions Prescriptions: New aspirin 81 mg Tablet,Chewable 81 mg PO BID Qty: 60 RF: 0 oxycodone 5 mg tablet 5 mg PO TID PRN (Reason: pain) 3 Days Qty: 10 RF: 0 Discontinued prednisone 10 mg Tablet 40 mg PO BID RF: 0 Referrals / Follow Up: Nellie Blount MD [Primary Care Provider] - Good Zuniga MD [STAFF PHYSICIAN] - Within 1 Week Luke Borges PA-C [PHYSICIAN SUPERVISOR CELL MAINTENANCE] - 06/22/21 9:45 am Disposition Disposition (needs filled in before D/C Order can be placed): Home Health Service Charges/Coding Addendum Addendum: Dr. Babcock: I personally reviewed the chart and examined the patient, and agree with the above findings. 41-year-old male presented to the hospital with what appeared to be septic knee. He denies any direct trauma to the knee but states that he did have an upper respiratory infection about a week prior to the knee pain. He was started on broad-spectrum antibiotics and infectious disease was consulted as was orthopedic surgery. He is status post washout on 06/09/2021 with an antibiotic spacer as he had had a previous knee replacement on the right. He feels much better today after surgery will continue with oral pain medications as well as IV Rocephin per the recommendations of ID. We will await a PICC line placement prior to discharge. 06/11/2021: Doing well after surgery, still having some right knee pain. He is also complaining of constipation today, he was given a dose of MiraLAX and Colace however he did not want to stay in the hospital for mag citrate. I discussed with him that his white count was little bit elevated and that this could likely be reactive to surgery, it was also discussed with him that we would not be able to get home health for him until Tuesday. He and his expressed understanding of the risk and benefits of discharge and still elected for discharge today. We did go over the therapy techniques for his knee as well as proper technique for administering IV antibiotics. He will be on IV Rocephin for 6 weeks with outpatient follow-up it with infectious disease and orthopedic surgery. He will need to be on aspirin twice daily for 4weeks. Visit Charges Inpatient E&M: 48431 Disch Hosp
== END 2021-06-11 14:45 | disposition home health service (06) | DRG 463 ==
LOC: ED 06:19 → MS3 06:46
PROVIDERS: Specialist; Admitting Provider Family Medicine; Emergency Provider Emergency Medicine; PCP Family Medicine; Visit Provider Family Medicine
PROC: 0SPC0NZ Removal of Patellofemoral Synthetic Substitute from Right Knee Joint, Open Approach (ICD-10-PCS; CPT 27301; principal; 2021-06-09 13:40)
DX: T84.53XA Infection and inflammatory reaction due to internal right knee prosthesis, initial encounter (principal); E43 Unspecified severe protein-calorie malnutrition; M00.261 Other streptococcal arthritis, right knee; D62 Acute posthemorrhagic anemia; Y83.1 Surgical operation with implant of artificial internal device as the cause of abnormal reaction of the patient, or of later complication, without mention of misadventure at the time of the procedure; B95.4 Other streptococcus as the cause of diseases classified elsewhere; M17.11 Unilateral primary osteoarthritis, right knee; H53.2 Diplopia; K59.00 Constipation, unspecified; F17.210 Nicotine dependence, cigarettes, uncomplicated; Z96.653 Presence of artificial knee joint, bilateral
CPT/HCPCS: 36415; 36569; 70450; 73560; 73564; 80048; 85025; 85652; 86140; 87015; 87070; 87075; 87077; 87102; 87116; 87176; 87186; 87205; 87206; 89050; 89051; 89060; 97162; 97166; 97530; 97535; 97802; 99251; 99285; 99406; C1776; J7030; J7040; J7050; J7120; A4216; G0463; J0696; J2405

== ENCOUNTER 2021-06-15 11:51 | Outpatient (RCR) | payer SELFPAY ==
[2021-06-15 12:31] LABS: Erythrocyte Sedimentation Rate 70 mm/hr (0-20)
[2021-06-15 12:41] LABS: Hematocrit 31.2 % (40-54); Hemoglobin 10.3 g/dL (13.0-16.5); Mean Corpuscular Hgb 26.7 pg (27.0-32.0); Mean Corpuscular Volume 80.8 fL (80-94); Mean Platelet Vol. 9.4 fl (6.2-12.0); Platelet Count 514 K/mm3 (150-450); RBC Distribution Width CV 12.4 % (11.6-14.6); RBC Distribution Width SD 36.4 fl (35.1-43.9); Red Blood Count 3.86 M/mm3 (4.6-6.2); White Blood Count 12.3 K/mm3 (4.4-11.0)
[2021-06-15 19:26] LABS: ALB/GLOB Ratio 0.4 RATIO (0.9-2.4); AST(SGOT) 65 U/L (15-37); Alanine Aminotransfer ALT/SGPT 94 U/L (16-61); Albumin, Serum 1.7 g/dL (3.2-5.0); Alkaline Phosphatase 241 U/L (45-117); Anion Gap 9 (5-15); BUN 17 mg/dL (7-18); BUN/Creat Ratio 22.3 RATIO (10-20); Calcium,Total 8.5 mg/dL (8.5-10.1); Chloride 98 mmol/L (98-107); Creatinine, Serum 0.76 mg/dL (0.70-1.30); EST Glomerular Filtration Rate 119 mL/min (>60); Est Glom Filt Rate - Afr Amer 144 mL/min (>60); Globulin 4.3 g/dL (2.2-4.2); Glucose 147 mg/dL (74-106); Potassium 3.7 mmol/L (3.5-5.1); Sodium Level 133 mmol/L (136-145)
== END 2021-06-19 23:59 ==
LOC: LABSPEC 11:51
PROVIDERS: PCP Family Medicine; Visit Provider Physician Assistant
DX: Z45.2 Encounter for adjustment and management of vascular access device (principal)
CPT/HCPCS: 80053; 85027; 85652

== ENCOUNTER 2021-06-22 12:21 | Outpatient (CLI) | payer SELFPAY, OTHER ==
--- NOTE | 2021-06-22 12:51 | VDLE_ITS ---
Reason For Study: Infection RIGHT GSV is normal. CFV is compressible, spontaneous, phasic, competent and demonstrates normal augmentation. FV is compressible, spontaneous, phasic, competent and demonstrates normal augmentation. POP V is compressible, spontaneous, phasic, competent and demonstrates normal augmentation. T/P Trunk is compressible. PTV is compressible. RT PerV is compressible. Hypoechoic, non vascular structure noted from distal thigh to Pop fossa measuring 1.29cm x 3.32cm and 1.76cm x 2.69cm Hypoechoic, non vascular strcuture noted Rt prox-mid calf measuring 2.16cm x 4.52cm. Procedure This is a venous duplex using B-mode, color flow and spectral Doppler. Exam performed in department. A preliminary report was called and/or faxed to Janina AGOSTO. VL/Venous Duplex US, Unilateral Interpretation Summary Deep veins of the right lower extremity are patent and compressible segmentally . There is no evidence of right lower extremity deep vein thrombosis. Valvular competence kerry ears intact within the proximal deep venous system on the right . The right great saphenous vein a ppears patent and compressible segmentally. Two non-vascular, hypoechoic structures are noted in the right lower extremity, the size and locations of which are documented above. These may repr esent popliteal cysts, seromas, lymphoceles, etc. Clinical correlation is advised. Ordering Physician: Janina Clements Referring Physician: Nellie Blount Performed By: Glenna Clemens RDCS, RVT
== END 2021-06-22 23:59 | disposition home or self-care (01) ==
PROVIDERS: PCP Family Medicine; Referring Provider Physician Assistant Surgical; Visit Provider Physician Assistant Surgical
DX: T84.53XA Infection and inflammatory reaction due to internal right knee prosthesis, initial encounter (principal)
CPT/HCPCS: 93971

== ENCOUNTER 2021-07-03 03:18 | Inpatient (IN) | payer OTHER, SELFPAY ==
[2021-06-29 15:31] LABS: Absolute Lymphocyte Count 1.26 X10^3/uL (0.83-4.51); Absolute Neutrophil Count 4.9 X10^3/uL (2.0-7.7); Basophil# 0.07 X10^3/uL; Eosinophil# 0.32 X10^3/uL; Eosinophils% 4.5 % (0-5); Hematocrit 33.6 % (40-54); Hemoglobin 10.7 g/dL (13.0-16.5); Lymphocyte # 1.26 X10^3/ul (0.83-4.51); Lymphocyte % 17.7 % (19-41); Mean Corp Hgb Conc 31.8 g/dL (32-36); Mean Corpuscular Hgb 25.8 pg (27.0-32.0); Mean Platelet Vol. 8.9 fl (6.2-12.0); Monocyte# 0.52 X10^3/uL; Monocyte% 7.3 % (0-10); NRBC Flagged by Analyzer 0 % (0-5); Neutrophil # 4.93 X10^3/uL (2.7-7.7); Neutrophil % 69.2 % (47-70); Platelet Count 424 K/mm3 (150-450); RBC Distribution Width CV 12.3 % (11.6-14.6); RBC Distribution Width SD 35.9 fl (35.1-43.9); Red Blood Count 4.15 M/mm3 (4.6-6.2); White Blood Count 7.1 K/mm3 (4.4-11.0)
[2021-06-29 16:19] LABS: Albumin, Serum 2.7 g/dL (3.2-5.0); Anion Gap 8 (5-15); BUN 18 mg/dL (7-18); BUN/Creat Ratio 16.1 RATIO (10-20); Calcium,Total 9.2 mg/dL (8.5-10.1); Chloride 102 mmol/L (98-107); Creatinine, Serum 1.12 mg/dL (0.70-1.30); EST Glomerular Filtration Rate 76 mL/min (>60); Est Glom Filt Rate - Afr Amer 92 mL/min (>60); Glucose 88 mg/dL (74-106); Potassium 3.8 mmol/L (3.5-5.1); Sodium Level 137 mmol/L (136-145)
[2021-06-29 16:35] LABS: Magnesium 2.4 mg/dL (1.6-2.6)
[2021-07-02] VITALS (11 sets, daily range): BP systolic 114–132; BP diastolic 73–97; PULSE 57–95; RESP 15–18; TEMP 36.2–36.9; O2SAT 94–100; BMI 28.0; BMI 27.9
[2021-07-02 11:10] LABS: Bedside Glucose 69 mg/dL (70-110)
[2021-07-02] MEDS: Gabapentin 600 MG Tablet PO (11:11)
[2021-07-02] MEDS: Acetaminophen 500 MG Tablet 1000 MG PO ×2 (11:11→22:03)
[2021-07-02] MEDS: dexAMETHasone 10 MG/ML Vial IV (12:56)
[2021-07-02] MEDS: Cefazolin 1 GM/5 ML Vial 2 GM OPERA.SITE (14:00)
[2021-07-02] MEDS: Vancomycin IV 1,000 MG/20 ML Vial 6000 MG OPERA.SITE (14:00)
--- NOTE | 2021-07-02 14:50 | PCM.OPRPT ---
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 Right knee explant knee arthroplasty femoral and tibial components with placement of antibiotic spacer 2. Right knee placement of nonbiodegradable antibiotic liver system 3. Right knee excision of sinus tract 2 cm x 1 cm 4. Right complete synovectomy Description of Surgical Findings:: Complete excision of sinus tract. Distal femoral and proximal tibial cuts were made. Implants were completely excised. Complete synovectomy was performed. Surgeon: Minesh Augustine medical appliance maker: Luke Borges Type of Anesthesia: General Anesthesiologist: Malachi Chinchilla Special Medications: 2 g Ancef. Antibiotics were placed and cement 4.8 g tobramycin, 2 g Ancef, 6 g vancomycin Specimen's removed: 3 separate specimens were sent to microbiology. Sinus tract was sent to pathology. Estimated Blood Loss (mL): 200 Fluids Replaced: 800 mL crystalloid Description of Procedure: Implants used: 2 threaded Steinmann pins were used for dowels Brief history operative indications: 41-year-old male with total knee replacement in partial knee replacement in 2017. Patient presented for with infection in June 09, 2021. He was taken to the operating room where an irrigation debridement with retainment of implants was attempted. He came to the office at his 2-week postop visit on removal of taya it was clear he had a draining sinus in the distal portion of the incision. Betadine dressings were commenced and patient was ready for the operating room for concerns of continued infection. At that time patient had already demonstrated history of progression to osteoarthritis and continued pain in his knee and there were plans in place for a total knee replacement. Based on the continued infection and wound healing complications we did elect to proceed with an antibiotic spacer with plans for conversion to total knee replacement after clearance of the infection. Risks of the procedure were discussed with the patient which include but not limited to blood loss, DVTs, PEs, nervous damage, infection, the risk of anesthesia. Patient demonstrate understanding was able to sign informed consent. Medical clearance was obtained. We also discussed the risk of continued infection requiring further surgery. Procedure: On the date of procedure patient's r lower extremity was marked in the preoperative area. The patient was then taken back to the operating room where the patient was placed on the table in the supine position. All bony prominences were identified a well-padded. Anesthesia assumed control of the C-spine and airway and remained controlled throughout the remainder of the procedure. A tourniquet was placed on the r upper thigh and the leg was prepped in a sterile fashion. The surgeon then scrubbed at this time. Upon reentering the room r lower extremity was draped in a standard orthopedic fashion. A timeout was then called and everyone agreed upon the side, the site, the procedure to be performed, patient's identity and antibiotics given. An Esmarch bandage was used to exsanguinate the extremity and the tourniquet was placed up to 250 mmHg with the knee in flexion. A midline skin incision was made using the previous incision and extending it proximally and distally to identify normal tissue planes. At this point we carefully ellipsed the 2 cm x 1 cm sinus tract and sent to pathology. It was clear that the sinus tract tract all the way down to the joint meeting a major criteria for continued infection. Medial and lateral flaps were developed appropriate releases. The standard medial parapatellar arthrotomy was made and the patella was subluxed laterally. At this time an aggressive synovectomy was performed re-creating the medial gutter first, then the suprapatellar pouch than the lateral gutter. Once this was completed the knee was flexed up an osteotome was used to remove the tibial polyethylene. The remainder of the synovium was debrided. The standard deep MCL release was done and the patella scar pad was resected and lateral releases were performed. Next our attention was directed to the femur. Where flexible osteotomes were used to break up the implant cement interface. This was done both medially and laterally. After this a bone tamp was used to remove the femur component from the end of the bone. This was done with minimal bone loss. At this time attention was now directed towards the proximal tibia. Flexible osteotome was then used to break up the proximal tibia implant interface and stacked osteotomes were used to remove the tibial implant. This was done with minimal bone loss. Our attention was turned to the femur where we made a 6 mm distal femur cut cleaning up the distal femur cut from the removed implant. We then freehanded a posterior condylar cut and posterior chamfer cut. Our attention was then turned to the tibia where the intramedullary canal was reamed to 15 at the same time we did ream to a 15 mm femoral canal. We then made a cleanup cut on the tibia. At this time based on the depth of the reaming and the size of the reaming we elected to proceed with cement dowels for nonbiodegradable antibiotic delivery system with threaded Steinmann pins in both femoral and tibial canals. The posterior knee was then carefully debrided of infected synovium and lateral meniscus was removed. After we had thoroughly debrided the knee the tourniquet was let down hemostasis was obtained. Tourniquet was then placed up again and 6 L of normal saline were irrigated throughout the wound under low-pressure lavage. On the back table while my assistant federal public defender was irrigating out the wound half Of the antibiotic cement was mixed with half of the antibiotics creating the dowels around the threaded Steinmann pins. Once his antibiotic delivery system dowels were made and the wound was adequately irrigated the antibiotic cement dowels delivery systems were put into the canals. We then mixed the remainder of the cement with the remainder of the antibiotics pull traction on the knee and packed the cement in between the femur and tibia with the knee in slight flexion. Traction was held on the knee while the cement cured. After the cement cured a 3-minute Betadine lavage was performed as well as a chlorhexidine lavage. 1 L of normal saline was then irrigated throughout the wound. The wound was then closed in a layered webb fashion. We used interrupted #1 Vicryl to close the tenuous layer of the arthrotomy where the sinus tract had been. #1 PDS was then used for the remainder of the wound running proximally and distally. 2-0 Vicryl was used for the subcutaneous layer and final skin closure was done with nylon suture. A incisional wound VAC was placed for his final dressing. A sterile compressive dressing was then placed. The patient was then awakened from anesthesia, transferred to the [facility] and transferred to the PACU for recovery. Post op plan DVT ppx: Patient be placed on Xarelto 10 mg daily due to limited mobility for DVT prophylaxis, thigh high compression stockings Follow up: in office in 2 weeks for wound check PT: Patient will be toe-touch weightbearing for 6 weeks followed by partial weightbearing until replant is performed. My physician assistant federal public defender was a vital part of this case. He was important in appropriate retraction during the case, and protection of soft tissues during bony cuts. His intimate knowledge of the case and my steps aided in safe and expedient completion of the procedure as well as appropriate position of the leg during the case. He was also vital in assisting with closure under my direct supervision. Complications No intraoperative complications Admit VTE Documentation VTE Present on Admission: No VTE Mechan Device Prophylaxis: SCD's and Thigh High CLARA Hose VTE Pharm Prophylaxis ordered?: Yes
[2021-07-02] MEDS: Lactated Ringers 1,000 ML 999 ML IV (15:39)
[2021-07-02] MEDS: Ketorolac 15 MG/ML Vial IV (15:55)
--- NOTE | 2021-07-02 16:05 | RAD_ITS ---
STUDY: X-RAY - RIGHT KNEE REASON FOR EXAM: Male, 41 years old. post op -- AP and Lateral xray of operative knee in PACU TECHNIQUE: 2 view(s) of the knee. COMPARISON: 06/09/2021 FINDINGS: Normal visualized distal femur. Normal visualized proximal tibia and fibula. Normal proximal tibiofibular articulation. Status post interval arthrodesis with subcutaneous emphysema and a surgical drain.. The soft tissue structures are unremarkable. RAD/Knee 1 or 2 Views IMPRESSION: Recent arthrodesis. Electronically Signed: Negro Pathak MD at 16:47 EST Tel , Service support ,
--- NOTE | 2021-07-02 16:29 | SUR.PHASEI ---
SUPPLEMENTAL O2 SHUT OFF AT 1620 DUE TO END TIDAL CO2 READINGS IN MID 50S
--- NOTE | 2021-07-02 17:29 | SUR.PHASEI ---
PATIENT SENT WITH MEPILEX DRESSING TO BE PLACED ON INCISION AFTER WOUND VAC RUNS OUT OF BATTERY.
[2021-07-02] MEDS: oxyCODONE 5 MG Tablet PO (18:12)
--- NOTE | 2021-07-02 18:42 | SUR.PHASEI ---
Verified with Dr. Augustine not to give 2 1L boluses, only 1 per ERAS protocol.
[2021-07-02] MEDS: Lactated Ringers 1,000 ML 125 ML IV (18:44)
[2021-07-02] MEDS: Senna/Docusate Sodium 1 Tablet 2 TABLET PO (22:03)
--- NOTE | 2021-07-03 | KNEE_PTH ---
PATIENT: DELFINA GARCIA LOC: MS2 U#:[id number] AGE/SX: 41/M [place] [facility] [place]: Dr. Minesh Augustine MD : 1980 BED: 1 DIS: 07/03/2021 SPEC #: [id number] RECD: 07/03/21 11:32 STATUS: LOIS POWERS #: [id number] MALGORZATA: 07/03/21 00:[address]: Minesh Augustine DEPT: SURGICAL PATHOLOGY RECD BY: Fito Hernandez ENTERED: 07/03/21 11:32 SP TYPE: TOTAL KNEE OTHR DR: MD Dr. Ramesh Rawls MD Tissues: Knee, NOS Procedures: Surgery Specimen Level IV HEADER OPERATION: ERAS, irrigation and debridement knee removal PRE-OP DIAGNOSIS: Infection and inflammatory reaction due to internal right knee prosthesis TISSUE SUBMITTED: Right knee sinus tract MICROSCOPIC DIAGNOSIS Right knee sinus tract: Fragments of skin, fibroadipose and fibroconnective tissue with acute inflammation, fibrinopurulent exudation, chronic inflammation and foreign body giant cell reaction. . DANIEL:romelia 07/06/2021 COMMENT Specimen also shows black pigment particles. Case has been reviewed in consultation with Dr. Parrish who concurs with the above diagnosis. IDC:AM MICROSCOPIC DESCRIPTION Slides are reviewed. GROSS DESCRIPTION Received in fixative is one container labeled with the patient's name and designated right knee sinus tract. The specimen consists of three variable sized pieces of skin with underlying tissue measuring in aggregate 4 x 2 x 0.8 cm. The largest piece is sectioned. The entire specimen is submitted in two cassettes. / DANIEL:romelia 07/03/2021 TC:2 CPT: 77701
[2021-07-03 02:00] VITALS: BP 120/65; PULSE 78; RESP 16; TEMP 36.5; O2SAT 98
[2021-07-03] MEDS: Lactated Ringers 1,000 ML 125 ML IV (02:19)
[2021-07-03] MEDS: Acetaminophen 500 MG Tablet 1000 MG PO ×2 (05:13→13:16)
[2021-07-03] MEDS: Rivaroxaban 10 MG Tablet PO (05:13)
[2021-07-03 06:10] LABS: Hematocrit 27.1 % (40-54); Hemoglobin 8.8 g/dL (13.0-16.5); Mean Corp Hgb Conc 32.5 g/dL (32-36); Mean Corpuscular Volume 79.9 fL (80-94); Mean Platelet Vol. 9.4 fl (6.2-12.0); Platelet Count 330 K/mm3 (150-450); RBC Distribution Width CV 12.7 % (11.6-14.6); RBC Distribution Width SD 35.8 fl (35.1-43.9); Red Blood Count 3.39 M/mm3 (4.6-6.2); White Blood Count 8.7 K/mm3 (4.4-11.0)
[2021-07-03 06:27] LABS: Anion Gap 5 (5-15); BUN 11 mg/dL (7-18); Calcium,Total 8.6 mg/dL (8.5-10.1); Chloride 105 mmol/L (98-107); Creatinine, Serum 0.91 mg/dL (0.70-1.30); EST Glomerular Filtration Rate 97 mL/min (>60); Est Glom Filt Rate - Afr Amer 117 mL/min (>60); Estimated Creatinine Clearance 116.07 ml/min; Glucose 107 mg/dL (74-106); Sodium Level 136 mmol/L (136-145)
--- NOTE | 2021-07-03 06:48 | PN.ORTHO_ITS ---
Subjective Subjective The patient was sitting in bed sleeping upon examination. Patient denies any chest pain, shortness of breath, dizziness, lightheadedness, nausea or vomiting, or calf pain. Pain is controlled on medications. No adverse overnight events. Overall patient is doing well with no complaints this morning. His pain has been well controlled. Patient is currently utilizing a knee immobilizer and is toe-touch weightbearing for the right lower extremity. Patient had a previous medial unicompartmental knee replacement in which she underwent an irrigation debridement with polyethylene exchange on June 09, [address] Minesh Augustine. Patient had a draining sinus. Dr. Augustine recommended two-stage procedure with antibiotic spacer. Patient wanted a second opinion and went to [place]. Patient then decided to proceed with surgery by Dr. Augustine. At his previous surgery with Dr. Augustine, infectious disease was involved and patient did see Dr. Zuniga. Patient has been administering IV antibiotics at home on their own. Patient has been on ceftriaxone 2 g IV daily. He has been tolerating this on his own. He has a PICC line. Objective Data Objective Data Vital Signs: Vital Signs Temp Pulse Resp BP Pulse Ox 97.7 F L 78 16 120/65 98 07/03/21 02:00 07/03/21 02:00 07/03/21 02:00 07/03/21 02:00 07/03/21 02:00 Oxygen Flow Rate (L/min) 2 Oxygen Delivery Method Room Air Weight: 93.44 kg Body Mass Index (BMI) 27.9 Intake & Output: Intake and Output for Last 24 Hours 07/01/21 07/02/21 07/03/21 23:59 23:59 23:59 Intake Total 436.5 / 436.5 947.92 / 947.92 Output Total 1700 / 1700 Balance 436.5 / 136.5 -752.08 / -752.08 Lab / Micro Data Result Diagrams: 07/03/21 05:43 07/03/21 05:43 Labs: Laboratory Results - last 24 hr 07/02/21 10:51: POC Glucose 69 L 07/03/21 05:43: WBC 8.7, RBC 3.39 L, Hgb 8.8 L, Hct 27.1 L, MCV 79.9 L, MCH 26.0 L, MCHC 32.5, RDW Std Deviation 35.8, RDW Coeff of Bacilio 12.7, Plt Count 330, MPV 9.4 07/03/21 05:43: Sodium 136, Potassium 4.0, Chloride 105, Carbon Dioxide 26.0, Anion Gap 5, BUN 11, Creatinine 0.91, Estim Creat Clear Calc 116.07, Est GFR (MDRD) Af Amer 117, Est GFR (MDRD) Non-Af 97, BUN/Creatinine Ratio 12.0, Glucose 107 H, Calcium 8.6 Micro: Microbiology 06/29/21 14:35 Swab (Method) Nasal Screen MRSA/MSSA - Final 06/29/21 14:20 Interface Orders SARS-CoV-2 Antigen (Rapid) - Final Radiography Diagnostic Testing: Radiology Impression Knee X-Ray 07/02/21 16:05 IMPRESSION: Recent arthrodesis. Electronically Signed: Negro Pathak MD at 16:47 EST Tel , Service support , Physical Exam Narrative Vital signs stable and afebrile. Patient is able to plantarflex and dorsiflex actively. Sensation is intact to light touch to saphenous, sural, superficial and deep peroneal, and tibial distribution. Patient has wound VAC in place with no drainage in the canister. Knee immobilizer is fitting appropriately. Negative Homans bilaterally, negative signs and symptoms of DVT. Const alert, oriented x3 and no apparent distress Assessment & Plan Assessment/Plan (1) History of partial knee replacement: (2) Septic arthritis of knee: QUALIFIERS: Septic arthritis organism: streptococcal Laterality: right Qualified Code(s): M00.261 - Other streptococcal arthritis, right knee PLAN: 1. S/P right knee explant knee arthroplasty femoral and tibial component with placement of antibiotic spacer and excision of sinus tract POD #1 2. Continue Pain Medications: Tylenol and oxycodone 3. DVT Prophylaxis: Patient will be placed on Xarelto due to limited mobility and range of motion 4. PT/OT: Toe-touch weightbearing right lower extremity for 6 weeks postoperatively. Continue with the knee immobilizer at all times. At rest he can undo the knee immobilizer for ice. No range of motion of the right knee. 5. H & H: 8.8/27.1, asymptomatic. Postoperative anemia secondary to acute blood loss from surgery without any intra operative complications. 6. Encouraged Incentive Spirometry 7. Infectious disease consultation: Patient has seen previously Dr. Zuniga after his last surgery on June 09, 2021. He was placed on IV antibiotics ceftriaxone 2 g daily. They have been administering this at home. Dr. Henderson has been consulted today for further recommendations. Depending upon recommendations from infectious disease, the plan will be for possible discharge home today. 8. Continue with wound VAC for 5 days postoperatively. 9. Disposition: Plan will be for possible discharge today to home with self administration of antibiotics. Patient has PICC line established and is currently on ceftriaxone. Appreciate input from infectious disease. Patient would also like to be seen locally by infectious disease if possible. He has not an established appointment in 3 weeks up in [facility]. Patient will require 2-week follow-up with our office for suture removal and incision check. I discussed with the patient to continue with the wound VAC for 5 days postoperatively. If for some reason the battery pack would fail, he will be given a Mepilex dressing that he will place on the incision for no longer than 7 days postoperatively. He did voiced understanding and agreement. Patient's was present as well. Patient has oxycodone prescription that we will tube down to the pharmacy to get filled. I will send in Xarelto for DVT prophylaxis for 2 weeks postoperatively. Patient has Tylenol at home. He was instructed to stop the aspirin 81 mg. Discussed with the patient he should be utilizing crutches or walker due to his weightbearing restrictions. I do not recommend a cane since he is toe-touch weightbearing on the right lower extremity. Physical therapy will assess him today. Plan will be for discharge today as long as everything is set up from infectious disease standpoint. Patient is orthopedically stable. I have reviewed the [place] Automated Rx Reporting System (OARRS) report for this patient for refill pattern and other prescriber involvement as part of the appropriate surveillance for the provision of acute and chronic controlled medications. The report was requested and reviewed on the date of this entry and was considered in the prescribing process.
--- NOTE | 2021-07-03 07:03 | PCM.DC ---
Discharge Instructions Diet Discharge Diet: No restrictions Activity Discharge Activity: May Not Drive (while taking narcotic pain medications.) May shower in (days): 5 (Please turn dressing away from water. Okay to get wet as long as dressing is intact to skin.) Ice area for (Minutes): 20 (Every 1-2 hours while awake[address] place barrier between the skin and ice pack.) Weight Bearing Status: Toe touch weight bearing (Toe-touch weightbearing with walker or crutches for 6 weeks postoperatively. No range of motion of right knee) Keep extremity elevated above heart level: Operative Extremity Dressing / Incision Call your doctor if your incision/area has: Continuous Slow Oozing, Sudden Increased Bleeding, Increased Pain/ Swelling, Increased Redness and Foul Smelling Discharge Call your doctor if you observe: Fever of 101 or Higher, Coldness, Increased Pain, Numbness or Tingling, Change in Color, Shortness of breath, Chest pain, Calf discomfort and Uncontrolled pain Remove Dressing in: 4 days (Okay to remove wound VAC in 4 days on July 17, 2021) Additional Dressing/Incision Instructions:: Follow [facility] Post-op Instructions. Once postoperative dressing has been removed only use gentle soap and water over the incision. Do not use any ointments, Neosporin, salves, alcohol pads over the incision for 6 weeks postoperatively. Do not submerge underwater for 6 weeks postoperatively. Continue with CLARA hose/elastic stockings for 2 weeks postoperatively. May remove at nighttime but needs to be placed back on the leg during the day. Do NOT use alcohol with narcotic pain medication. Do NOT make important decisions while taking narcotic medication. If you have problems with taking your medication (rash, itching, nausea, etc.) call the office at once. Follow Up Care Test Results: Test results from this visit will be discussed in further detail at your follow-up appointment, if applicable. Discharge Plan Admission Admit Date/Time: 07/03/21 03:18 Attending Provider: Minesh Augustine Primary Care Provider: Nellie Blount Consulting Providers: Ramesh Henderson Discharge Orders/Prescriptions Prescriptions: New acetaminophen 500 mg Tablet 1,000 mg PO Q8 14 Days Qty: 84 RF: 0 ceftriaxone 2 gram recon soln 2 g IV Q24H Qty: 1 RF: 0 oxycodone 5 mg Tablet 5 - 10 mg PO Q4H PRN PRN (Reason: Pain Score 4-10) 7 Days Qty: 0 RF: 0 Xarelto 10 mg Tablet 10 mg PO 0600 13 Days Qty: 13 RF: 0 sennosides-docusate sodium [Stool Softener-Stimulant Laxat] 8.6-50 mg Tablet 2 tab PO BID Qty: 0 RF: 0 Discontinued aspirin 81 mg Tablet,Chewable 81 mg PO BID Qty: 60 RF: 0 oxycodone 5 mg tablet 5 mg PO TID PRN (Reason: pain) 3 Days Qty: 10 RF: 0 Referrals / Follow Up: Nellie Blount MD [Primary Care Provider] - Ramesh Henderson MD [STAFF PHYSICIAN] - (Will need scheduled follow up with Infectious Disease) Janina Clements PA [PHYSICIAN PUBLIC POLICY ANALYST] - 07/17/21 10:15 am
[2021-07-03 08:15] VITALS: BP 108/75; PULSE 77; RESP 16; TEMP 36.9; O2SAT 97
[2021-07-03] MEDS: Senna/Docusate Sodium 1 Tablet 2 TABLET PO (08:35)
[2021-07-03] MEDS: Ensure Surgery 237 ML LIQUID PO ×2 (08:35→13:21)
[2021-07-03] MEDS: oxyCODONE 5 MG Tablet PO ×2 (08:35→11:11)
[2021-07-03] MEDS: Famotidine 20 MG Tablet PO (08:35)
--- NOTE | 2021-07-03 12:01 | CASEMGMT ---
ARMAAN QUESADA Face to Face with patient for initial transition planning/care coordination assessment. RN SANGITA introduced self and role at [facility]. Patient lying in bed, alert and oriented, at bedside. Patient willing to participate in assessment and is able to answer all questions appropriately. Care providers, pharmacy, and demographics verified. Patient wishes to discharge home with resumption of care with [facility]. RN SANGITA called Sebastian at [facility] and confirmed services for detention and PT. Patient states he has no further needs or concerns at this time. CM to follow for discharge planning needs that may arise. PCP: Sunil Specialists: pippa Augustine; SHMUEL Henderson Preferred Pharmacy: [facility] [place] Insurance: Parallocity Prescription Benefit: none Living Will/HPOA: none LNOK: Living Arrangements: Patient lives with in a 2 story home with 5 steps and railing to enter the home. Patient's bed and bath on first floor. Patient states he was independent at home. Transportation: Law Office Manager DME/C: Patient states he has shower chair, raised toilet, cane, crutches, walker, and lift chair. Patient is active with [facility] and completing IV ATBs already at home. Plan is for patient to resume [facility] at discharge. Awaiting ID to confirm atbs at discharge. Disposition Plan: Patient to discharge home with [facility], family support, and follow-up plans in place. Isabel SERNA, RN, CM
--- NOTE | 2021-07-03 13:04 | CON.PCM.ID_ITS ---
Assessment & Plan Assessment/Plan (1) Infection of prosthetic right knee joint: PLAN: Cxs 06/09 with strep. Has been on ceftriaxone. Will write for 6 more weeks of ceftriaxone, stop date 08/13/21. Will adjust depending on further cx results. ID followup in 2-3 weeks. Will follow, thank you, d/w outpatient case manager HPI Consult Data Date of Consult: 07/03/21 HPI Narrative HPI Narrative: DELFINA GARCIA, is a 41 M who presented with new drainage from R knee. Admitted last month, taken to OR 06/09/[address] Augustine for strep intermedius PJI. I&D done, discharged on ceftriaxone. No issues with picc, no fever, no redness, pain controlled, but developed new bloody drainage. Taken back to OR 07/02/21 for spacer placement, removal of sinus tract. Full ROS performed and neg except as noted above. [facility] Medical History Ambulates with cane CRP elevated Dietary restriction Leukocytosis PONV (postoperative nausea and vomiting) Septic arthritis of knee Smoker Walker as ambulation aid Wears partial dentures Home Medications acetaminophen 1,000 mg PO Q8 14 Days #84 tab 07/03/21 [Rx Last Taken Unknown] ceftriaxone 2 g IV Q24H #1 ea 07/03/21 [Rx Last Taken Unknown] ceftriaxone 2 g IV Q24H 40 Days #40 ea 07/03/21 [Rx Last Taken Unknown] oxycodone 5 - 10 mg PO Q4H PRN PRN 7 Days #0 tab 07/03/21 [Rx Last Taken Unkn own] rivaroxaban [Xarelto] 10 mg PO 0600 13 Days #13 tab 07/03/21 [Rx Last Taken Unknown] sennosides-docusate sodium [Stool Softener-Stimulant Laxat] 2 tab PO BID #0 tab 07/03/21 [Rx Last Taken Unknown] Allergy/AdvReac Type Severity Reaction Status Date / Time No Known Allergies Allergy Verified 07/02/21 11:13 Surgical History (Updated 07/03/21 @ 06:57 by Luke AGOSTO PA-C) History of right knee surgery History of total left knee replacement Social History Smoking Status: Current some day smoker tobacco type: cigarettes Physical Exam Const alert, oriented x3 and no apparent distress General Appearance: cooperative Exam Limitations: no limitations HEENT normocephalic and head/scalp atraumatic Eyes PERRL and EOMs intact bilaterally Neck supple and No nodes Resp normal air movement and clear to auscultation bilaterally Cardio regular rate and regular rhythm GI normal to inspection, nondistended, normoactive bowel sounds Extremity no clubbing, cyanosis or edema Skin no rashes or lesions noted Skin Narrative: RLE wrapped Neuro CN's II-XII intact bilaterally Medical Records Data Medical Nutrition Assessment Dietitian: Malnutrition Criteria Met Start: 07/03/21 12:35 Freq: Status: Active Protocol: Document 07/03/21 12:36 [facility] (Rec: 07/03/21 12:36 [facility] [id number]) Nutrition Malnutrition Evidence of Malnutrition Exists Yes Malnutrition (severe): Acute Illness/Injury Evidenced By Suboptimal Energy Intake ( Severe),Weight Loss (Severe) Clinical Problem Acute Disease or Injury Related Malnutrition Etiology related to increased pain in R knee Signs/Symptoms as evidenced by pt w/ <50% po intake and >12% wt loss in past 2-3 weeks travel pta Status Active Problem Recommendation Dietitian Recommendations/Changes Will continue current diet as ordered Will continue ensure surgery 4 oz tid w/ medpass Lab / Micro Data Result Diagrams: 07/03/21 05:43 07/03/21 05:43 Labs: Laboratory Results - last 24 hr 07/03/21 05:43: WBC 8.7, RBC 3.39 L, Hgb 8.8 L, Hct 27.1 L, MCV 79.9 L, MCH 26.0 L, MCHC 32.5, RDW Std Deviation 35.8, RDW Coeff of Bacilio 12.7, Plt Count 330, MPV 9.4 07/03/21 05:43: Sodium 136, Potassium 4.0, Chloride 105, Carbon Dioxide 26.0, Anion Gap 5, BUN 11, Creatinine 0.91, Estim Creat Clear Calc 116.07, Est GFR (MDRD) Af Amer 117, Est GFR (MDRD) Non-Af 97, BUN/Creatinine Ratio 12.0, Glucose 107 H, Calcium 8.6 Micro: Microbiology 07/02/21 15:27 Tissue - Knee Gram Stain - Final 07/02/21 15:27 Tissue - Knee Wound Culture - Preliminary No growth-Final to follow 07/02/21 15:27 Tissue - Knee Gram Stain - Final 07/02/21 15:27 Tissue - Knee Wound Culture - Preliminary No growth-Final to follow 07/02/21 15:27 Tissue - Knee Gram Stain - Final 07/02/21 15:27 Tissue - Knee Wound Culture - Preliminary No growth-Final to follow Radiology Impression Knee X-Ray 07/02/21 16:05 IMPRESSION: Recent arthrodesis. Electronically Signed: Negro Pathak MD at 16:47 EST Tel , Service support ,
[2021-07-03] MEDS: 0.9% NaCl Peripheral Flush Adult/Peds IV (13:16)
[2021-07-03 13:30] VITALS: BP 108/69; PULSE 69; RESP 18; TEMP 36.9; O2SAT 98
--- NOTE | 2021-07-03 13:42 | CASEMGMT ---
ARMAAN QUESADA received updated script for IV ATB. Patient will continue to IV Rocephin daily for 6 weeks. ARMAAN QUESADA called and updated Nellie at [facility] regarding extended IV ATB. ARMAAN QUESADA called and updated Sebastian at [facility] for C. ARMAAN QUESADA faxed clinical information to both places. Patient updated and no further questions or concerns.
== END 2021-07-03 14:00 | disposition home or self-care (01) | DRG 464 ==
LOC: SDC 03:40 → MS2 03:40
PROVIDERS: Anesthesiology; Admitting Provider Specialist; PCP Family Medicine; Referring Provider Specialist; Visit Provider Specialist
PROC: 0SPC0JZ Removal of Synthetic Substitute from Right Knee Joint, Open Approach (ICD-10-PCS; CPT 27488; principal; 2021-07-02 11:35)
DX: T84.53XA Infection and inflammatory reaction due to internal right knee prosthesis, initial encounter (principal); M00.261 Other streptococcal arthritis, right knee; F17.210 Nicotine dependence, cigarettes, uncomplicated; Z79.82 Long term (current) use of aspirin; Z96.653 Presence of artificial knee joint, bilateral
CPT/HCPCS: 36415; 73560; 80048; 82040; 82962; 83735; 85025; 85027; 87015; 87070; 87075; 87077; 87081; 87102; 87107; 87116; 87205; 87206; 87426; 88305; 97161; 97166; 97802; 99251; 99406; C9803; J7120; A4216; G0463; J0696; J2405; J3260

== ENCOUNTER 2021-07-07 14:20 | Outpatient (RCR) | payer OTHER, SELFPAY ==
[2021-06-30 12:28] LABS: Hematocrit 32.4 % (40-54); Hemoglobin 10.4 g/dL (13.0-16.5); Mean Corp Hgb Conc 32.1 g/dL (32-36); Mean Corpuscular Hgb 25.6 pg (27.0-32.0); Mean Corpuscular Volume 79.8 fL (80-94); Mean Platelet Vol. 9.8 fl (6.2-12.0); Platelet Count 369 K/mm3 (150-450); RBC Distribution Width CV 12.5 % (11.6-14.6); RBC Distribution Width SD 35.8 fl (35.1-43.9); Red Blood Count 4.06 M/mm3 (4.6-6.2); White Blood Count 5.8 K/mm3 (4.4-11.0)
[2021-06-30 12:32] LABS: Erythrocyte Sedimentation Rate 48 mm/hr (0-20)
[2021-06-30 12:49] LABS: ALB/GLOB Ratio 0.5 RATIO (0.9-2.4); AST(SGOT) 25 U/L (15-37); Alanine Aminotransfer ALT/SGPT 84 U/L (16-61); Albumin, Serum 2.6 g/dL (3.2-5.0); Alkaline Phosphatase 138 U/L (45-117); Anion Gap 12 (5-15); BUN 15 mg/dL (7-18); BUN/Creat Ratio 14.4 RATIO (10-20); Calcium,Total 9.2 mg/dL (8.5-10.1); Chloride 101 mmol/L (98-107); Creatinine, Serum 1.04 mg/dL (0.70-1.30); EST Glomerular Filtration Rate 83 mL/min (>60); Est Glom Filt Rate - Afr Amer 101 mL/min (>60); Globulin 4.9 g/dL (2.2-4.2); Glucose 82 mg/dL (74-106); Protein, Total 7.5 g/dL (6.4-8.2); Sodium Level 138 mmol/L (136-145)
[2021-07-07 15:16] LABS: Hematocrit 25.8 % (40-54); Hemoglobin 8.3 g/dL (13.0-16.5); Mean Corp Hgb Conc 32.2 g/dL (32-36); Mean Corpuscular Hgb 26.3 pg (27.0-32.0); Mean Corpuscular Volume 81.6 fL (80-94); Mean Platelet Vol. 9.6 fl (6.2-12.0); Platelet Count 327 K/mm3 (150-450); RBC Distribution Width CV 13.6 % (11.6-14.6); RBC Distribution Width SD 39.7 fl (35.1-43.9); Red Blood Count 3.16 M/mm3 (4.6-6.2); White Blood Count 6.2 K/mm3 (4.4-11.0)
[2021-07-07 15:21] LABS: ALB/GLOB Ratio 0.6 RATIO (0.9-2.4); AST(SGOT) 35 U/L (15-37); Alanine Aminotransfer ALT/SGPT 92 U/L (16-61); Albumin, Serum 2.5 g/dL (3.2-5.0); Alkaline Phosphatase 118 U/L (45-117); Anion Gap 8 (5-15); BUN 22 mg/dL (7-18); BUN/Creat Ratio 23.3 RATIO (10-20); Calcium,Total 8.5 mg/dL (8.5-10.1); Chloride 104 mmol/L (98-107); Creatinine, Serum 0.94 mg/dL (0.70-1.30); EST Glomerular Filtration Rate 93 mL/min (>60); Est Glom Filt Rate - Afr Amer 113 mL/min (>60); Globulin 3.9 g/dL (2.2-4.2); Glucose 112 mg/dL (74-106); Potassium 3.6 mmol/L (3.5-5.1); Protein, Total 6.4 g/dL (6.4-8.2); Sodium Level 140 mmol/L (136-145)
[2021-07-07 15:51] LABS: Erythrocyte Sedimentation Rate 61 mm/hr (0-20)
== END 2021-07-20 23:59 | disposition home or self-care (01) ==
LOC: LABSPEC 14:20
PROVIDERS: PCP Family Medicine; Visit Provider Physician Assistant
DX: Z45.2 Encounter for adjustment and management of vascular access device (principal); M00.861 Arthritis due to other bacteria, right knee
CPT/HCPCS: 80053; 85027; 85652

== ENCOUNTER 2021-07-20 13:14 | Outpatient (RCR) | payer OTHER, SELFPAY ==
[2021-07-13 13:25] LABS: Erythrocyte Sedimentation Rate 51 mm/hr (0-20)
[2021-07-13 13:27] LABS: Hematocrit 29.5 % (40-54); Hemoglobin 9.3 g/dL (13.0-16.5); Mean Corp Hgb Conc 31.5 g/dL (32-36); Mean Corpuscular Hgb 25.3 pg (27.0-32.0); Mean Corpuscular Volume 80.4 fL (80-94); Mean Platelet Vol. 9.4 fl (6.2-12.0); Platelet Count 310 K/mm3 (150-450); RBC Distribution Width SD 40.7 fl (35.1-43.9); Red Blood Count 3.67 M/mm3 (4.6-6.2); White Blood Count 5.4 K/mm3 (4.4-11.0)
[2021-07-13 13:49] LABS: ALB/GLOB Ratio 0.7 RATIO (0.9-2.4); AST(SGOT) 25 U/L (15-37); Alanine Aminotransfer ALT/SGPT 58 U/L (16-61); Albumin, Serum 2.9 g/dL (3.2-5.0); Alkaline Phosphatase 123 U/L (45-117); Anion Gap 6 (5-15); BUN 18 mg/dL (7-18); BUN/Creat Ratio 18.6 RATIO (10-20); Calcium,Total 9.3 mg/dL (8.5-10.1); Chloride 102 mmol/L (98-107); Creatinine, Serum 0.97 mg/dL (0.70-1.30); EST Glomerular Filtration Rate 90 mL/min (>60); Est Glom Filt Rate - Afr Amer 109 mL/min (>60); Globulin 3.9 g/dL (2.2-4.2); Glucose 79 mg/dL (74-106); Potassium 4.7 mmol/L (3.5-5.1); Protein, Total 6.8 g/dL (6.4-8.2); Sodium Level 137 mmol/L (136-145)
[2021-07-20 13:44] LABS: Erythrocyte Sedimentation Rate 20 mm/hr (0-20)
[2021-07-20 13:55] LABS: Hematocrit 31.5 % (40-54); Hemoglobin 10.2 g/dL (13.0-16.5); Mean Corp Hgb Conc 32.4 g/dL (32-36); Mean Corpuscular Hgb 26.4 pg (27.0-32.0); Mean Corpuscular Volume 81.4 fL (80-94); Mean Platelet Vol. 9.5 fl (6.2-12.0); Platelet Count 281 K/mm3 (150-450); RBC Distribution Width CV 14.6 % (11.6-14.6); RBC Distribution Width SD 43.2 fl (35.1-43.9); Red Blood Count 3.87 M/mm3 (4.6-6.2); White Blood Count 5.4 K/mm3 (4.4-11.0)
[2021-07-20 13:58] LABS: ALB/GLOB Ratio 0.8 RATIO (0.9-2.4); AST(SGOT) 19 U/L (15-37); Alanine Aminotransfer ALT/SGPT 38 U/L (16-61); Alkaline Phosphatase 123 U/L (45-117); Anion Gap 8 (5-15); BUN 15 mg/dL (7-18); Calcium,Total 8.8 mg/dL (8.5-10.1); Chloride 103 mmol/L (98-107); EST Glomerular Filtration Rate 87 mL/min (>60); Est Glom Filt Rate - Afr Amer 105 mL/min (>60); Globulin 3.7 g/dL (2.2-4.2); Glucose 108 mg/dL (74-106); Potassium 3.8 mmol/L (3.5-5.1); Protein, Total 6.7 g/dL (6.4-8.2); Sodium Level 138 mmol/L (136-145)
== END 2021-07-20 23:59 ==
LOC: LABSPEC 13:14
PROVIDERS: PCP Family Medicine; Visit Provider Physician Assistant
DX: Z45.2 Encounter for adjustment and management of vascular access device (principal)
CPT/HCPCS: 80053; 85027; 85652

== ENCOUNTER 2021-08-04 09:36 | Outpatient (RCR) | payer OTHER, SELFPAY ==
[2021-07-27 14:09] LABS: Erythrocyte Sedimentation Rate 14 mm/hr (0-20)
[2021-07-27 14:12] LABS: Hematocrit 34.1 % (40-54); Hemoglobin 10.8 g/dL (13.0-16.5); Mean Corp Hgb Conc 31.7 g/dL (32-36); Mean Corpuscular Hgb 26.3 pg (27.0-32.0); Mean Corpuscular Volume 83.2 fL (80-94); Mean Platelet Vol. 9.6 fl (6.2-12.0); Platelet Count 246 K/mm3 (150-450); RBC Distribution Width CV 14.9 % (11.6-14.6); RBC Distribution Width SD 45.3 fl (35.1-43.9); White Blood Count 5.6 K/mm3 (4.4-11.0)
[2021-07-27 14:16] LABS: ALB/GLOB Ratio 0.9 RATIO (0.9-2.4); AST(SGOT) 17 U/L (15-37); Alanine Aminotransfer ALT/SGPT 37 U/L (16-61); Albumin, Serum 3.2 g/dL (3.2-5.0); Alkaline Phosphatase 112 U/L (45-117); Anion Gap 8 (5-15); BUN 11 mg/dL (7-18); BUN/Creat Ratio 10.6 RATIO (10-20); Calcium,Total 9.2 mg/dL (8.5-10.1); Chloride 103 mmol/L (98-107); Creatinine, Serum 1.04 mg/dL (0.70-1.30); EST Glomerular Filtration Rate 83 mL/min (>60); Est Glom Filt Rate - Afr Amer 101 mL/min (>60); Globulin 3.5 g/dL (2.2-4.2); Glucose 119 mg/dL (74-106); Potassium 4.1 mmol/L (3.5-5.1); Protein, Total 6.7 g/dL (6.4-8.2); Sodium Level 136 mmol/L (136-145)
[2021-08-04 09:58] LABS: Erythrocyte Sedimentation Rate 27 mm/hr (0-20)
[2021-08-04 10:00] LABS: Hematocrit 35.5 % (40-54); Hemoglobin 11.7 g/dL (13.0-16.5); Mean Corpuscular Hgb 27.1 pg (27.0-32.0); Mean Corpuscular Volume 82.4 fL (80-94); Mean Platelet Vol. 9.2 fl (6.2-12.0); Platelet Count 210 K/mm3 (150-450); RBC Distribution Width CV 14.7 % (11.6-14.6); RBC Distribution Width SD 44.4 fl (35.1-43.9); Red Blood Count 4.31 M/mm3 (4.6-6.2)
[2021-08-04 10:01] LABS: AST(SGOT) 15 U/L (15-37); Alanine Aminotransfer ALT/SGPT 25 U/L (16-61); Albumin, Serum 3.5 g/dL (3.2-5.0); Alkaline Phosphatase 106 U/L (45-117); Anion Gap 7 (5-15); BUN 13 mg/dL (7-18); BUN/Creat Ratio 13.4 RATIO (10-20); Chloride 106 mmol/L (98-107); Creatinine, Serum 0.97 mg/dL (0.70-1.30); EST Glomerular Filtration Rate 90 mL/min (>60); Est Glom Filt Rate - Afr Amer 109 mL/min (>60); Globulin 3.6 g/dL (2.2-4.2); Glucose 84 mg/dL (74-106); Potassium 3.7 mmol/L (3.5-5.1); Protein, Total 7.1 g/dL (6.4-8.2); Sodium Level 138 mmol/L (136-145)
== END 2021-08-17 23:59 | disposition home or self-care (01) ==
LOC: LABSPEC 09:36
PROVIDERS: PCP Family Medicine; Referring Provider Physician Assistant; Visit Provider Physician Assistant
DX: M00.861 Arthritis due to other bacteria, right knee (principal); Z45.2 Encounter for adjustment and management of vascular access device
CPT/HCPCS: 80053; 85027; 85652

== ENCOUNTER 2021-08-17 10:45 | Outpatient (CLI) | payer SELFPAY ==
[2021-08-17 11:29] LABS: Erythrocyte Sedimentation Rate 8 mm/hr (0-20)
[2021-08-17 11:30] LABS: Absolute Lymphocyte Count 1.53 X10^3/uL (0.83-4.51); Basophil# 0.04 X10^3/uL; Basophil% 0.6 % (0-1); Eosinophil# 0.11 X10^3/uL; Eosinophils% 1.5 % (0-5); Hematocrit 40.2 % (40-54); Hemoglobin 13.3 g/dL (13.0-16.5); Lymphocyte # 1.53 X10^3/ul (0.83-4.51); Lymphocyte % 21.2 % (19-41); Mean Corp Hgb Conc 33.1 g/dL (32-36); Mean Corpuscular Volume 81.7 fL (80-94); Mean Platelet Vol. 8.8 fl (6.2-12.0); Monocyte# 0.52 X10^3/uL; Monocyte% 7.2 % (0-10); NRBC Flagged by Analyzer 0 % (0-5); Neutrophil % 69.2 % (47-70); Platelet Count 338 K/mm3 (150-450); RBC Distribution Width CV 14.6 % (11.6-14.6); RBC Distribution Width SD 43.2 fl (35.1-43.9); Red Blood Count 4.92 M/mm3 (4.6-6.2); White Blood Count 7.2 K/mm3 (4.4-11.0)
[2021-08-17 12:01] LABS: CRP 3.84 mg/L (0.0-3.0)
== END 2021-08-17 23:59 | disposition home or self-care (01) ==
LOC: LAB 10:47
PROVIDERS: PCP Family Medicine; Referring Provider Specialist; Visit Provider Specialist
DX: T84.53XD Infection and inflammatory reaction due to internal right knee prosthesis, subsequent encounter (principal); X58.XXXD Exposure to other specified factors, subsequent encounter
CPT/HCPCS: 36415; 85025; 85652; 86140

== ENCOUNTER 2021-08-31 15:37 | Outpatient (CLI) | payer SELFPAY ==
[2021-08-31 16:26] LABS: Absolute Lymphocyte Count 1.52 X10^3/uL (0.83-4.51); Absolute Neutrophil Count 4.3 X10^3/uL (2.0-7.7); Basophil# 0.04 X10^3/uL; Basophil% 0.6 % (0-1); Eosinophil# 0.19 X10^3/uL; Eosinophils% 2.9 % (0-5); Hematocrit 41.1 % (40-54); Hemoglobin 13.4 g/dL (13.0-16.5); Lymphocyte # 1.52 X10^3/ul (0.83-4.51); Lymphocyte % 23.2 % (19-41); Mean Corp Hgb Conc 32.6 g/dL (32-36); Mean Corpuscular Hgb 26.5 pg (27.0-32.0); Mean Corpuscular Volume 81.4 fL (80-94); Mean Platelet Vol. 9.3 fl (6.2-12.0); Monocyte# 0.47 X10^3/uL; Monocyte% 7.2 % (0-10); NRBC Flagged by Analyzer 0 % (0-5); Neutrophil # 4.31 X10^3/uL (2.7-7.7); Neutrophil % 65.8 % (47-70); Platelet Count 287 K/mm3 (150-450); RBC Distribution Width CV 14.1 % (11.6-14.6); RBC Distribution Width SD 41.1 fl (35.1-43.9); Red Blood Count 5.05 M/mm3 (4.6-6.2); White Blood Count 6.6 K/mm3 (4.4-11.0)
[2021-08-31 17:16] LABS: Erythrocyte Sedimentation Rate 14 mm/hr (0-20)
[2021-08-31 17:26] LABS: CRP 3.46 mg/L (0.0-3.0)
== END 2021-08-31 23:59 | disposition home or self-care (01) ==
LOC: LAB 15:38
PROVIDERS: PCP Family Medicine; Visit Provider Specialist
DX: T84.53XD Infection and inflammatory reaction due to internal right knee prosthesis, subsequent encounter (principal); X58.XXXD Exposure to other specified factors, subsequent encounter
CPT/HCPCS: 36415; 85025; 85652; 86140

== ENCOUNTER 2021-09-11 13:33 | Outpatient (CLI) | payer SELFPAY ==
[2021-09-11 14:52] LABS: Albumin, Serum 3.6 g/dL (3.2-5.0)
== END 2021-09-11 23:59 | disposition home or self-care (01) ==
LOC: LAB 13:33
PROVIDERS: PCP Family Medicine; Referring Provider Specialist; Visit Provider Specialist
DX: Z01.812 Encounter for preprocedural laboratory examination (principal)
CPT/HCPCS: 36415; 82040